=== PATIENT | male | born 1975 ===

== ENCOUNTER → 2020-07-11 09:03 | Outpatient (BNVA) | payer MEDICAID, SELFPAY | PROVIDERS: Visit Provider Internal Medicine | DX: F11.99 Opioid use, unspecified with unspecified opioid-induced disorder (principal) | CPT/HCPCS: 99202 ==

== ENCOUNTER → 2020-07-17 15:33 | Outpatient (BNVA) | payer MEDICAID, SELFPAY | PROVIDERS: PCP Internal Medicine; Visit Provider Internal Medicine ==

== ENCOUNTER → 2020-07-25 15:43 | Outpatient (BNVA) | payer MEDICAID, SELFPAY | PROVIDERS: Visit Provider Internal Medicine | DX: F11.99 Opioid use, unspecified with unspecified opioid-induced disorder (principal) | CPT/HCPCS: 80305; 99212 ==

== ENCOUNTER → 2020-08-01 15:42 | Outpatient (BNVA) | payer MEDICAID, SELFPAY | PROVIDERS: Visit Provider Internal Medicine ==

== ENCOUNTER → 2020-08-08 15:58 | Outpatient (BNVA) | payer MEDICAID, SELFPAY | PROVIDERS: Visit Provider Internal Medicine | DX: Z51.81 Encounter for therapeutic drug level monitoring (principal) | CPT/HCPCS: 80305; 99211 ==

== ENCOUNTER → 2020-08-22 15:25 | Outpatient (BNVA) | payer MEDICAID, SELFPAY | PROVIDERS: Visit Provider Internal Medicine ==

== ENCOUNTER → 2020-09-03 14:47 | Outpatient (BNVA) | payer MEDICAID, SELFPAY | PROVIDERS: Visit Provider Internal Medicine | DX: F11.99 Opioid use, unspecified with unspecified opioid-induced disorder (principal) | CPT/HCPCS: 99212 ==

== ENCOUNTER → 2020-11-07 11:38 | Outpatient (BNVA) | payer MEDICAID, SELFPAY | PROVIDERS: Visit Provider Internal Medicine | DX: F11.99 Opioid use, unspecified with unspecified opioid-induced disorder (principal) | CPT/HCPCS: 80305; 99212 ==

== ENCOUNTER → 2020-12-05 09:55 | Outpatient (BNVA) | payer MEDICAID, SELFPAY | PROVIDERS: Visit Provider Internal Medicine | DX: F11.90 Opioid use, unspecified, uncomplicated (principal) | CPT/HCPCS: 80305; 99212 ==

== ENCOUNTER → 2021-01-23 10:55 | Outpatient (BNVA) | payer MEDICAID, SELFPAY | PROVIDERS: Visit Provider Internal Medicine | DX: F11.90 Opioid use, unspecified, uncomplicated (principal) | CPT/HCPCS: 80305; 99212 ==

== ENCOUNTER → 2021-02-20 15:36 | Outpatient (BNVA) | payer MEDICAID, SELFPAY | PROVIDERS: Visit Provider Internal Medicine | DX: Z51.81 Encounter for therapeutic drug level monitoring (principal); F11.90 Opioid use, unspecified, uncomplicated | CPT/HCPCS: 80305; 99212 ==

== ENCOUNTER → 2021-03-23 17:08 | Outpatient (BNVA) | payer MEDICAID, SELFPAY | PROVIDERS: Visit Provider Internal Medicine | DX: Z51.81 Encounter for therapeutic drug level monitoring (principal); F11.90 Opioid use, unspecified, uncomplicated | CPT/HCPCS: 80305; 99212 ==

== ENCOUNTER → 2021-05-08 15:51 | Outpatient (BNVA) | payer MEDICAID, SELFPAY | PROVIDERS: Visit Provider Internal Medicine | DX: F11.20 Opioid dependence, uncomplicated (principal); Z51.81 Encounter for therapeutic drug level monitoring; Z79.899 Other long term (current) drug therapy | CPT/HCPCS: 80305; 99212 ==

== ENCOUNTER → 2021-05-25 17:11 | Outpatient (BNVA) | payer MEDICAID, SELFPAY | PROVIDERS: Visit Provider Internal Medicine | DX: Z51.81 Encounter for therapeutic drug level monitoring (principal); F11.20 Opioid dependence, uncomplicated | CPT/HCPCS: 80305; 99212 ==

== ENCOUNTER → 2021-07-22 15:46 | Outpatient (BNVA) | payer MEDICAID, SELFPAY | PROVIDERS: Visit Provider Internal Medicine | DX: F11.20 Opioid dependence, uncomplicated (principal) | CPT/HCPCS: 80305; 99212 ==

== ENCOUNTER → 2021-08-26 15:58 | Outpatient (BNVA) | payer MEDICAID, SELFPAY | PROVIDERS: Visit Provider Internal Medicine | DX: F11.99 Opioid use, unspecified with unspecified opioid-induced disorder (principal) | CPT/HCPCS: 99212 ==

== ENCOUNTER → 2021-09-25 15:51 | Outpatient (BNVA) | payer MEDICAID, SELFPAY | PROVIDERS: Visit Provider Internal Medicine | DX: Z51.81 Encounter for therapeutic drug level monitoring (principal); F11.20 Opioid dependence, uncomplicated | CPT/HCPCS: 80305; 99212 ==

== ENCOUNTER → 2021-10-07 15:55 | Outpatient (BNVA) | payer MEDICAID, SELFPAY | PROVIDERS: Visit Provider Internal Medicine | DX: Z51.81 Encounter for therapeutic drug level monitoring (principal); F11.20 Opioid dependence, uncomplicated | CPT/HCPCS: 80305; 99212 ==

== ENCOUNTER → 2021-11-04 14:04 | Outpatient (BNVA) | payer MEDICAID, SELFPAY | PROVIDERS: Visit Provider Internal Medicine | DX: Z51.81 Encounter for therapeutic drug level monitoring (principal); F11.20 Opioid dependence, uncomplicated | CPT/HCPCS: 80305; 99212 ==

== ENCOUNTER → 2021-12-09 10:36 | Outpatient (BNVA) | payer MEDICAID, SELFPAY | PROVIDERS: Visit Provider Internal Medicine | DX: Z51.81 Encounter for therapeutic drug level monitoring (principal); F11.20 Opioid dependence, uncomplicated | CPT/HCPCS: 80305; 99212 ==

== ENCOUNTER 2021-12-30 09:04 | Outpatient (REF) | payer MEDICAID, SELFPAY ==
--- NOTE | ~2021-12-30 | XR_ITS ---
EXAMINATION: XR HIP, RIGHT CLINICAL INFORMATION: Pain COMPARISON: None TECHNIQUE: Two views of the right hip. FINDINGS: Bone alignment is normal. No fracture or dislocation is seen. There is moderate to severe right hip arthritis with joint space narrowing, osteophyte formation and subchondral cyst formation. Soft tissues are unremarkable. XR/XR hip RT min 2V IMPRESSION: Moderate to severe right hip arthritis.
[2021-12-30 09:25] LABS: MANUAL DIFF FLAG NO
[2021-12-30 09:39] LABS: Basophils Percent Auto 0.6 % (0-2); Eosinophils Absolute Auto 0.2 X10*3/uL (0.0-0.4); Eosinophils Percent Auto 2.1 % (0-4); Hematocrit 45.7 % (42.0-52.0); Hemoglobin 15.1 g/dl (14.0-18.0); Imm Gran Abs Auto 0.04 X10*3/uL (0.00-0.03); Imm Gran Pct Auto 0.6 % (0.0-0.4); Lymphocytes Absolute Auto 1.8 X10*3/uL (1.2-4.9); Lymphocytes Percent Auto 25.4 % (20-40); Mean Corpuscular Volume 93.8 fL (80.0-98.0); Mean Platelet Volume 10.1 fL (9.4-12.4); Monocytes Absolute Auto 0.6 X10*3/uL (0.1-1.2); Neutrophils Absolute Auto 4.5 x10*3/uL (2.0-8.3); Neutrophils Percent Auto 63.3 % (45-73); Platelet Count 200 X10*3/uL (160-400); Red Blood Count 4.87 X10*6/uL (4.60-5.80); Red Cell Distribution Width 12.7 % (11.0-16.0); White Blood Count 7.2 X10*3/uL (4.8-10.8)
[2021-12-30 10:19] LABS: Alanine Aminotransferase 23 U/L (0-40); Albumin Level 4.3 g/dL (3.5-5.0); Alkaline Phosphatase 73 U/L (39-117); Anion Gap 12 (12-20); Aspartate Amino Transferase 15 U/L (5-37); Bilirubin Total 0.9 mg/dL (0.0-1.0); Blood Urea Nitrogen 14 mg/dL (9-16); Calcium 9.1 mg/dL (8.4-10.2); Carbon Dioxide 30 mmol/L (22-29); Chloride 104 mmol/L (96-108); Cholesterol 246 mg/dL; Estimated Glomerular Filt Rate > 60; Glucose Random 106 mg/dL (60-115); HDL Cholesterol 43 mg/dL; LDL Cholesterol Calculated 176 mg/dl; Potassium 4.8 mmol/L (3.3-5.1); Sodium 141 mmol/L (135-145); Triglycerides 137 mg/dL
== END 2021-12-30 09:05 | disposition home or self-care (01) ==
LOC: HO.LAB 09:04
PROVIDERS: PCP Internal Medicine; Visit Provider Internal Medicine
DX: M25.551 Pain in right hip (principal); I10 Essential (primary) hypertension; E78.00 Pure hypercholesterolemia, unspecified; G47.33 Obstructive sleep apnea (adult) (pediatric)
CPT/HCPCS: 36415; 73502; 80053; 80061; 85025

== ENCOUNTER → 2022-01-06 14:51 | Outpatient (BNVA) | payer MEDICAID, SELFPAY | PROVIDERS: PCP Internal Medicine; Visit Provider Internal Medicine | DX: Z51.81 Encounter for therapeutic drug level monitoring (principal); F11.20 Opioid dependence, uncomplicated | CPT/HCPCS: 80305; 99212 ==

== ENCOUNTER 2022-01-25 07:49 | Outpatient (REF) | payer MEDICAID, SELFPAY ==
--- NOTE | ~2022-01-25 | XR_ITS ---
EXAMINATION: XR PELVIS CLINICAL INFORMATION: Pain. COMPARISON: Radiographs dated 01/01/2022. TECHNIQUE: AP view of the pelvis. FINDINGS: Bony alignment and mineralization are normal. There is marked narrowing of the right acetabular joint space, most pronounced superiorly. There is peripheral osteophyte formation and subchondral sclerosis of the articular surfaces of the right hip. There is subarticular cyst formation of the right acetabular roof. The left acetabular joint space is well-maintained. There is mild subchondral sclerosis of the left acetabular roof. The femoral heads appear smooth. No fracture or dislocation is seen. The soft tissue planes are unremarkable. XR/XR pelvis 1-2V IMPRESSION: 1. There is marked osteoarthritic change of the right hip, and very mild osteoarthritic change is seen of the left hip. 2. No acute fracture or dislocation is seen.
== END 2022-01-25 07:50 | disposition home or self-care (01) ==
LOC: HO.HOSX 07:49
PROVIDERS: Visit Provider Physician Assistant
DX: M25.551 Pain in right hip (principal); M16.11 Unilateral primary osteoarthritis, right hip; E66.9 Obesity, unspecified; Z68.42 Body mass index [BMI] 45.0-49.9, adult
CPT/HCPCS: 72170; 99202

== ENCOUNTER → 2022-02-03 15:06 | Outpatient (BNVA) | payer MEDICAID, SELFPAY | PROVIDERS: PCP Internal Medicine; Visit Provider Internal Medicine | DX: F11.20 Opioid dependence, uncomplicated (principal); F14.90 Cocaine use, unspecified, uncomplicated | CPT/HCPCS: 99212 ==

== ENCOUNTER 2022-02-17 13:40 | Outpatient (REF) | payer MEDICAID, SELFPAY ==
--- NOTE | ~2022-02-17 | FL_ITS ---
PROCEDURE: XR ARTHROGRAM HIP, RIGHT CLINICAL INFORMATION: Osteoarthritis right hip. COMPARISON: None TECHNIQUE: Following explaining fluoroscopy-guided right hip steroid injection procedure, benefits and risk, a written consent was obtained. Patient was placed supine on fluoroscopy table and anterior aspect of right hip was cleaned and draped in usual sterile manner. 1% lidocaine was inserted at puncture site. A 22-gauge spinal needle was then advanced from the skin to the lateral border of right hip joint and 2 mL of nonionic contrast was injected and single image obtained. Subsequently 80 mg/1 mL of Depo-Medrol and 5 mL 1% lidocaine was injected as a 6 mL volume and needle withdrawn. Complete hemostasis achieved at puncture site. Patient tolerate procedure extremely well. FINDINGS: On a single image obtained of right hip there is severe loss of right hip joint space with moderate periarticular lateral enthesophyte. There is contrast opacifying the joint space. Fluoroscopy-guided right hip steroid injection performed. FLUOROSCOPY TIME: 0.4 minutes. DOSE AREA PRODUCT: 4.174 uGy-m2 (microgray-meter squared). FL/FL arthrogram hip RT IMPRESSION: Successful fluoroscopy-guided right hip steroid injection performed without immediate complications.
== END 2022-02-17 13:41 | disposition home or self-care (01) ==
LOC: HO.XRAY 13:40
PROVIDERS: PCP Internal Medicine; Visit Provider Physician Assistant
DX: M16.11 Unilateral primary osteoarthritis, right hip (principal)
CPT/HCPCS: 27093; 73525

== ENCOUNTER → 2022-03-19 15:47 | Outpatient (BNVA) | payer MEDICAID, SELFPAY | PROVIDERS: PCP Internal Medicine; Visit Provider Internal Medicine | DX: F11.20 Opioid dependence, uncomplicated (principal) | CPT/HCPCS: 99212 ==

== ENCOUNTER → 2022-04-14 15:53 | Outpatient (BNVA) | payer MEDICAID, SELFPAY | PROVIDERS: PCP Internal Medicine; Visit Provider Internal Medicine | DX: F11.20 Opioid dependence, uncomplicated (principal) | CPT/HCPCS: 99212 ==

== ENCOUNTER → 2022-04-27 13:52 | Outpatient (BNVA) | payer MEDICAID, SELFPAY | PROVIDERS: PCP Internal Medicine; Visit Provider Physician Assistant | DX: M16.11 Unilateral primary osteoarthritis, right hip (principal); E66.9 Obesity, unspecified; Z68.42 Body mass index [BMI] 45.0-49.9, adult | CPT/HCPCS: 99212 ==

== ENCOUNTER → 2022-05-12 14:10 | Outpatient (BNVA) | payer MEDICAID, SELFPAY | PROVIDERS: PCP Internal Medicine; Visit Provider Internal Medicine | DX: Z51.81 Encounter for therapeutic drug level monitoring (principal); F11.20 Opioid dependence, uncomplicated | CPT/HCPCS: 99212 ==

== ENCOUNTER 2022-06-16 08:34 | Outpatient (REF) | payer MEDICAID, SELFPAY ==
[2022-06-24 08:44] LABS: Buprenorphine 8; Naloxone NEGATIVE; Norbuprenorphine 13
== END 2022-06-16 08:35 | disposition home or self-care (01) ==
LOC: HO.LAB 08:34
PROVIDERS: Nurse Practitioner Psychiatric/Mental Health; PCP Internal Medicine; Visit Provider Anesthesiology
DX: F11.20 Opioid dependence, uncomplicated (principal); M16.11 Unilateral primary osteoarthritis, right hip; E66.9 Obesity, unspecified; Z79.899 Other long term (current) drug therapy
CPT/HCPCS: 80305; 80348; 80362; 99202; 99212

== ENCOUNTER → 2022-07-14 16:10 | Outpatient (BNVA) | payer MEDICAID, SELFPAY | PROVIDERS: PCP Internal Medicine; Visit Provider Nurse Practitioner Psychiatric/Mental Health | DX: Z51.81 Encounter for therapeutic drug level monitoring (principal); F11.20 Opioid dependence, uncomplicated | CPT/HCPCS: 99212 ==

== ENCOUNTER 2022-08-11 10:41 | Outpatient (REF) | payer MEDICAID, SELFPAY ==
[2022-08-11 15:17] LABS: Alanine Aminotransferase 19 U/L (0-40); Albumin Level 4.2 g/dL (3.5-5.0); Alkaline Phosphatase 67 U/L (39-117); Anion Gap 9 (12-20); Aspartate Amino Transferase 12 U/L (5-37); Bilirubin Total 1.2 mg/dL (0.0-1.0); Blood Urea Nitrogen 15 mg/dL (9-16); Calcium 9.1 mg/dL (8.4-10.2); Carbon Dioxide 31 mmol/L (22-29); Chloride 105 mmol/L (96-108); Cholesterol 215 mg/dL; Estimated Glomerular Filt Rate > 60; Glucose Fasting 99 mg/dL (60-99); HDL Cholesterol 47 mg/dL; LDL Cholesterol Calculated 150 mg/dl; Potassium 4.4 mmol/L (3.3-5.1); Sodium 141 mmol/L (135-145); Total Protein 6.7 g/dL (6.5-8.0); Triglycerides 91 mg/dL
== END 2022-08-11 10:42 | disposition home or self-care (01) ==
LOC: HO.10HDL 10:41
PROVIDERS: Visit Provider Internal Medicine
DX: I10 Essential (primary) hypertension (principal); E78.00 Pure hypercholesterolemia, unspecified; G47.33 Obstructive sleep apnea (adult) (pediatric); F11.20 Opioid dependence, uncomplicated; Z51.81 Encounter for therapeutic drug level monitoring; Z79.899 Other long term (current) drug therapy
CPT/HCPCS: 36415; 80053; 80061; 99212

== ENCOUNTER → 2022-09-07 16:03 | Outpatient (BNVA) | payer MEDICAID, SELFPAY | PROVIDERS: PCP Internal Medicine | DX: Z79.891 Long term (current) use of opiate analgesic (principal) | CPT/HCPCS: 80305 ==

== ENCOUNTER → 2022-10-05 16:08 | Outpatient (BNVA) | payer MEDICAID, SELFPAY | PROVIDERS: PCP Internal Medicine; Visit Provider Nurse Practitioner Psychiatric/Mental Health | DX: F11.20 Opioid dependence, uncomplicated (principal) | CPT/HCPCS: 99212 ==

== ENCOUNTER → 2022-11-02 16:35 | Outpatient (BNVA) | payer MEDICAID, SELFPAY | PROVIDERS: PCP Internal Medicine; Visit Provider Nurse Practitioner Psychiatric/Mental Health | DX: F11.20 Opioid dependence, uncomplicated (principal); Z79.899 Other long term (current) drug therapy; Z51.81 Encounter for therapeutic drug level monitoring | CPT/HCPCS: 99212 ==

== ENCOUNTER → 2022-11-30 16:06 | Outpatient (BNVA) | payer MEDICAID, SELFPAY | PROVIDERS: PCP Internal Medicine; Visit Provider Nurse Practitioner Psychiatric/Mental Health | DX: Z51.81 Encounter for therapeutic drug level monitoring (principal); F11.20 Opioid dependence, uncomplicated | CPT/HCPCS: 80305; 99212 ==

== ENCOUNTER 2023-01-24 15:48 | Outpatient (AMB) | payer MEDICAID, SELFPAY ==
--- NOTE | 2023-01-24 15:51 | A.OFFVIS_ITS ---
Intake Vital Signs 01/24/23 16:00 BP 122/70 Blood Pressure Location Lt radial Position Sitting Pulse 90 Pulse Source Pulse Oximeter Pulse Oximetry (%) 97 Oxygen Delivery Method Room Air Intake Visit Reasons: mat visit Intake Note: The patient presents for a mat visit Resource Protection Specialist Required: No Allergies No Known Allergies Allergy (Verified 01/24/23 15:53) Do you need a note to return to daycare/school/sports/work: No HPI mat visit HPI Details Pt presents for OUD treatment follow up Currently being prescribed SUboxone 8mg BID Denies any side effects related to medication Possibly looking for a new job PFSH Medical History Hypercholesterolemia Hypertension Morbid obesity Opioid use disorder Social History Alcohol intake: current Patient Tobacco Use Status: Never used Tobacco Current occupational status: employed 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 Review of Systems Const Reports as per HPI and Reports no additional complaints Physical Exam Vital Signs: Last Vital Signs Pulse 90 01/24/23 16:00 BP 122/70 01/24/23 16:00 Pulse Ox 97 01/24/23 16:00 Oxygen Delivery Method Room Air 01/24/23 16:00 Const General: cooperative, no acute distress and alert Nutritional Appearance: overweight Orientation/consciousness: patient oriented x3 Limitations: no limitations Neuro General: patient oriented x3 Psych Appearance: well kempt Mental Status: mental status grossly normal Speech and movement: Normal speech and movement present Affect: normal affect Attitude: cooperative Thought process: Normal thought process present Thought content: Normal thought content present Insight: Good insight present (Psych) Judgement: Good judgement present (Psych) Assessment & Plan Assessment & Plan (1) Opioid use disorder: Code(s): F11.99 - Opioid use, unspecified with unspecified opioid-induced disorder Plan: * continue suboxone at current dose * follow up 8 weeks Coding Level of Care Code Est Pt Level 3 (03916) Diagnoses Opioid use disorder F11.99
[2023-01-24 16:00] VITALS: BP 122/70; PULSE 90; O2SAT 97
== END 2023-01-24 16:41 | disposition home or self-care (01) ==
LOC: HO.HCC 15:48
PROVIDERS: PCP Internal Medicine; Visit Provider Nurse Practitioner Psychiatric/Mental Health
DX: F11.99 Opioid use, unspecified with unspecified opioid-induced disorder (principal)
CPT/HCPCS: 99213

== ENCOUNTER → 2023-01-24 15:48 | Outpatient (BNVA) | payer MEDICAID, SELFPAY | PROVIDERS: PCP Internal Medicine; Visit Provider Nurse Practitioner Psychiatric/Mental Health | DX: F11.20 Opioid dependence, uncomplicated (principal); Z51.81 Encounter for therapeutic drug level monitoring; Z79.899 Other long term (current) drug therapy | CPT/HCPCS: 99212; 99213 ==

== ENCOUNTER 2023-03-24 10:20 | Outpatient (AMB) | payer MEDICAID, SELFPAY ==
--- NOTE | 2023-03-24 10:21 | MHC.OFFVIS ---
Intake Vital Signs 03/24/23 10:30 BP 122/84 Blood Pressure Location Lt radial Position Sitting Pulse 82 Pulse Source Pulse Oximeter Pulse Oximetry (%) 98 Oxygen Delivery Method Room Air Intake Visit Reasons: mat visit Intake Note: The patient presents for a mat visit Jewelry Appraiser Required: No Allergies No Known Allergies Allergy (Verified 03/24/23 10:21) Do you need a note to return to daycare/school/sports/work: No HPI mat visit HPI Details Pt presents for OUD treatment follow up Currently being prescribed 8mg BID Denies any side effects related to medication though he lost his insurance coverage at the begining of February so he did not crab picker his January Rx. Has been taking 1 film or less. 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 Review of Systems Const Reports as per HPI and Reports no additional complaints Physical Exam Vital Signs: Last Vital Signs Pulse 82 03/24/23 10:30 BP 122/84 03/24/23 10:30 Pulse Ox 98 03/24/23 10:30 Oxygen Delivery Method Room Air 03/24/23 10:30 Const General: cooperative, no acute distress and alert Nutritional Appearance: overweight Orientation/consciousness: patient oriented x3 Limitations: no limitations Neuro General: patient oriented x3 Psych Appearance: well kempt Mental Status: mental status grossly normal Speech and movement: Normal speech and movement present Affect: normal affect Attitude: cooperative Thought process: Normal thought process present Thought content: Normal thought content present Insight: Good insight present (Psych) Judgement: Good judgement present (Psych) Assessment & Plan Assessment & Plan (1) Opioid use disorder: Code(s): F11.99 - Opioid use, unspecified with unspecified opioid-induced disorder Plan: continue suboxone at current dose follow up 8 weeks encouraged to call office with any questions or concerns in the future Coding Level of Care Code Est Pt Level 3 (48577) Diagnoses Opioid use disorder F11.99
[2023-03-24 10:30] VITALS: BP 122/84; PULSE 82; O2SAT 98
== END 2023-03-24 11:39 | disposition home or self-care (01) ==
PROVIDERS: PCP Internal Medicine; Visit Provider Nurse Practitioner Psychiatric/Mental Health
DX: F11.99 Opioid use, unspecified with unspecified opioid-induced disorder (principal)
CPT/HCPCS: 99213

== ENCOUNTER → 2023-03-24 10:20 | Outpatient (BNVA) | payer MEDICAID, SELFPAY | PROVIDERS: PCP Internal Medicine; Visit Provider Nurse Practitioner Psychiatric/Mental Health | DX: F11.20 Opioid dependence, uncomplicated (principal) | CPT/HCPCS: 99212 ==

== ENCOUNTER 2023-05-24 16:57 | Outpatient (AMB) | payer MEDICAID, SELFPAY ==
--- NOTE | 2023-05-24 16:58 | A.OFFVIS_ITS ---
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 [facility] Medical History Hypercholesterolemia Hypertension Morbid obesity Opioid use disorder Social History Alcohol intake: current Patient Tobacco Use Status: Never used Tobacco Current occupational status: employed Current occupation: [employer] at [employer]/ rt hand Review of Systems Const Reports as per HPI Physical Exam Vital Signs: Last Vital Signs Pulse 84 05/24/23 17:06 BP 126/70 05/24/23 17:06 Pulse Ox 97 05/24/23 17:06 Oxygen Delivery Method Room Air 05/24/23 17:06 Const General: cooperative Resp Effort & Inspection: normal respiratory effort Psych Appearance: grossly normal Mental Status: mental status grossly normal Speech and movement: Normal speech and movement present Thought process: Normal thought process present Thought content: Normal thought content present Insight: Good insight present (Psych) Assessment & Plan Assessment & Plan (1) Opioid use disorder: Code(s): F11.99 - Opioid use, unspecified with unspecified opioid-induced disorder Plan: * continue suboxone at current dose * follow up 8 weeks * encouraged to call office with any questions or concerns in the future Medications: Refilled buprenorphine-naloxone 8-2 mg (Suboxone) 1 film sublingual BID 30 days 60 ea 1RF Coding Level of Care Code Est Pt Level 3 (15706) Diagnoses Opioid use disorder F11.99
[2023-05-24 17:06] VITALS: BP 126/70; PULSE 84; O2SAT 97
== END 2023-05-24 17:32 | disposition home or self-care (01) ==
PROVIDERS: PCP Internal Medicine; Visit Provider Nurse Practitioner Family
DX: F11.99 Opioid use, unspecified with unspecified opioid-induced disorder (principal)
CPT/HCPCS: 99213

== ENCOUNTER → 2023-05-24 16:57 | Outpatient (BNVA) | payer OTHER, SELFPAY | PROVIDERS: PCP Internal Medicine; Visit Provider Nurse Practitioner Family | DX: F11.20 Opioid dependence, uncomplicated (principal) | CPT/HCPCS: 99212 ==

== ENCOUNTER 2023-06-27 15:17 | Outpatient (AMB) | payer BC, SELFPAY ==
--- NOTE | 2023-06-27 15:23 | MHC.AM.SUB ---
Intake Vital Signs 06/27/23 15:27 BP 132/80 Blood Pressure Location Lt radial Position Sitting Pulse 74 Pulse Source Pulse Oximeter Pulse Oximetry (%) 98 Oxygen Delivery Method Room Air Intake Visit Reasons: mat visit Intake Note: the patient presents for a mat visit Robotics Systems Engineer Required: No Allergies No Known Allergies Allergy (Verified 06/27/23 15:28) Do you need a note to return to daycare/school/sports/work: No HPI mat visit HPI Details Patient presents for BRUNO treatment and follow up He reports having some difficulties with insurance renewal that led to a lapse He confirmed he was able to get his medications and did not run out of films at any time during the lapse. Reporting the yellow strips give him a headache Reports work and home life are going well His son is getting in a few months which he is looking forward to. Denies any recovery related concerns at this time. 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 Review of Systems Const Reports as per HPI Physical Exam Vital Signs: Last Vital Signs Pulse 74 06/27/23 15:27 BP 132/80 06/27/23 15:27 Pulse Ox 98 06/27/23 15:27 Oxygen Delivery Method Room Air 06/27/23 15:27 Const General: cooperative, comfortable and no acute distress Resp Effort & Inspection: normal respiratory effort Psych Appearance: grossly normal and well kempt Mental Status: mental status grossly normal Speech and movement: Normal speech and movement present Affect: normal affect Thought content: Normal thought content present Insight: Good insight present (Psych) Judgement: Good judgement present (Psych) Assessment & Plan Assessment & Plan (1) Opioid use disorder: Code(s): F11.99 - Opioid use, unspecified with unspecified opioid-induced disorder Plan: -Mass pat reviewed -Suboxone refilled -Follow up 8 weeks Medications: Refilled buprenorphine-naloxone 8-2 mg (Suboxone) 1 film sublingual BID 30 days 60 ea 1RF Coding Level of Care Code Est Pt Level 3 (77459) Diagnoses Opioid use disorder F11.99
[2023-06-27 15:27] VITALS: BP 132/80; PULSE 74; O2SAT 98
== END 2023-06-27 16:05 | disposition home or self-care (01) ==
PROVIDERS: PCP Internal Medicine; Visit Provider Nurse Practitioner Family
DX: F11.99 Opioid use, unspecified with unspecified opioid-induced disorder (principal)
CPT/HCPCS: 99213

== ENCOUNTER → 2023-06-27 15:17 | Outpatient (BNVA) | payer BC, SELFPAY | PROVIDERS: PCP Internal Medicine; Visit Provider Nurse Practitioner Family ==

== ENCOUNTER 2023-08-23 16:36 | Outpatient (AMB) | payer BC, SELFPAY ==
--- NOTE | 2023-08-23 16:38 | A.OFFVISCC_ITS ---
Intake Vital Signs 08/23/23 16:43 BP 140/84 H Blood Pressure Location Lt radial Position Sitting Pulse 98 Pulse Source Pulse Oximeter Pulse Oximetry (%) 98 Oxygen Delivery Method Room Air Intake Visit Reasons: mat visit Intake Note: The patient presents for a mat visit Customer Success Specialist Required: No Allergies No Known Allergies Allergy (Verified 08/23/23 16:43) Do you need a note to return to daycare/school/sports/work: No HPI mat visit HPI Details Pt presents for MAT visit He is doing well overall, no concerns related to recovery Tolerating suboxone 8mg BID, no concerns for side effects Has not seen his PCP recently, reports It's been awhile He has not had his atorvastatin or lisinopril in over a month Has colonoscopy scheduled next month [facility] Medical History Hypercholesterolemia Hypertension Morbid obesity Opioid use disorder Social History Alcohol intake: current Patient Tobacco Use Status: Never used Tobacco Current occupational status: employed 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 Review of Systems Const Reports as per HPI Physical Exam Vital Signs: Last Vital Signs Pulse 98 08/23/23 16:43 BP 140/84 H 08/23/23 16:43 Pulse Ox 98 08/23/23 16:43 Oxygen Delivery Method Room Air 08/23/23 16:43 Const General: cooperative and no acute distress Resp Effort & Inspection: normal respiratory effort Psych Appearance: grossly normal Mental Status: mental status grossly normal Speech and movement: Normal speech and movement present Affect: normal affect Assessment & Plan Assessment & Plan (1) Opioid use disorder: Code(s): F11.99 - Opioid use, unspecified with unspecified opioid-induced disorder Plan: -Mass pat reviewed -Continue suboxone at current dose -Follow up 8 weeks (2) Hypercholesterolemia: Code(s): E78.00 - Pure hypercholesterolemia, unspecified Plan: -Refilled atorvastatin -Lipid panel ordered (3) Hypertension: Code(s): I10 - Essential (primary) hypertension Qualifiers: Hypertension type: primary hypertension Qualified Code(s): I10 - Essential (primary) hypertension Plan: -Lisinopril refilled (4) Obesity: Code(s): E66.9 - Obesity, unspecified Qualifiers: Obesity type: due to excess calories Serious obesity comorbidity presence: without serious comorbidity Body mass index: BMI 40.0-44.9 Obesity classification: adult class 3 (BMI >= 40) Qualified Code(s): E66.01 - Morbid (severe) obesity due to excess calories; Z68.41 - Body mass index [BMI] 40.0- 44.9, adult Plan: -A1C ordered Orders: Orders Complete Blood Count Auto Diff Today F11.99 - Opioid use, unspecified with unspecified opioid-induced disorder Hemoglobin A1c Today E66.9 - Obesity, unspecified Hepatitis A,B,C Profile Today F11.99 - Opioid use, unspecified with unspecified opioid-induced disorder Comprehensive Met. Panel Today F11.99 - Opioid use, unspecified with unspecified opioid-induced disorder Lipid Panel Today E78.00 - Pure hypercholesterolemia, unspecified Medications: New atorvastatin 10 mg PO DAILY 30 tabs 0RF lisinopril 10 mg PO DAILY 30 tabs 0RF Refilled buprenorphine-naloxone 8-2 mg (Suboxone) 1 film sublingual BID 30 days 60 ea 1RF Coding Level of Care Code Est Pt Level 4 (32811) Diagnoses Opioid use disorder F11. Hypercholesterolemia E78.00 Primary hypertension I10 Hypertension type: primary hypertension Class 3 severe obesity due to excess calories without serious comorbidity with body mass index (BMI) of 40.0 to 44.9 in adult E66.01; Z68.41 Obesity type: due to excess calories Serious obesity comorbidity presence: without serious comorbidity Body mass index: BMI 40.0-44.9 Obesity classification: adult class 3 (BMI >= 40)
[2023-08-23 16:43] VITALS: BP 140/84; PULSE 98; O2SAT 98
== END 2023-08-23 17:07 | disposition home or self-care (01) ==
PROVIDERS: PCP Internal Medicine; Visit Provider Nurse Practitioner Family
DX: F11.99 Opioid use, unspecified with unspecified opioid-induced disorder (principal); E78.00 Pure hypercholesterolemia, unspecified; I10 Essential (primary) hypertension; E66.01 Morbid (severe) obesity due to excess calories; Z68.41 Body mass index [BMI] 40.0-44.9, adult
CPT/HCPCS: 99214

== ENCOUNTER → 2023-08-23 16:36 | Outpatient (BNVA) | payer BC, SELFPAY | PROVIDERS: PCP Internal Medicine; Visit Provider Nurse Practitioner Family ==

== ENCOUNTER 2023-10-18 16:17 | Outpatient (AMB) | payer BC, SELFPAY ==
--- NOTE | 2023-10-18 16:26 | A.OFFVISCC_ITS ---
Vital Signs 10/20/23 09:22 BP 172/90 H Blood Pressure Location Rt brachial Position Sitting Pulse 115 H Pulse Source Pulse Oximeter Pulse Oximetry (%) 96 Oxygen Delivery Method Room Air Intake Visit Reasons: mat visit Allergies No Known Allergies Allergy (Verified 08/23/23 16:43) HPI HPI mat visit: Details: Patient presents for MAT appointment Blood pressure/heart rate elevated at visit, he reports he recently drank a Monster energy drink before his appointment and ran all the way up He has been taking his lisinopril every morning per his report He has an appointment in December with Dr. 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 Review of Systems Const Reports as per HPI and Denies headache(s) Eyes Denies blurry vision and Denies diplopia ENT Denies headache(s) Neuro Denies headache(s) Physical Exam Const General: cooperative and no acute distress Resp Effort & Inspection: normal respiratory effort and able to speak in complete sentences Psych Appearance: grossly normal Mental Status: mental status grossly normal Speech and movement: Normal speech and movement present Affect: normal affect Attitude: cooperative Thought process: Normal thought process present Assessment & Plan Assessment & Plan (1) Hypertension: Code(s): I10 - Essential (primary) hypertension Category: Medical Qualifiers: Hypertension type: primary hypertension Qualified Code(s): I10 - Essential (primary) hypertension Plan: -Order sent to pharmacy for blood pressure cuff, instructed him to start monitoring his blood pressure in the morning and evening and track what the readings are in a notebook -Discussed with him symptoms of dangerously high blood pressure, and explained to him what he should present to the ED for (chest pain, unrelieved headache, vision changes) -Reviewed with him to contact PCP if he gets sustained elevated readings on his cuff -Reviewed with him target blood pressures (<130/80) (2) Opioid use disorder: Code(s): F11.99 - Opioid use, unspecified with unspecified opioid-induced disorder Category: Medical Plan: -Mass pat reviewed -Suboxone refilled -Follow up 8 weeks Medications: New blood pressure test kit-large As directed 1 ea 0RF Refilled buprenorphine-naloxone 8-2 mg (Suboxone) 1 film sublingual BID 60 ea 1RF 30 days
[2023-10-20 09:22] VITALS: BP 172/90; PULSE 115; O2SAT 96
== END 2023-10-18 16:43 | disposition home or self-care (01) ==
PROVIDERS: PCP Internal Medicine; Visit Provider Nurse Practitioner Family
DX: F11.90 Opioid use, unspecified, uncomplicated (principal); I10 Essential (primary) hypertension
CPT/HCPCS: 99214

== ENCOUNTER → 2023-10-18 16:17 | Outpatient (BNVA) | payer BC, SELFPAY | PROVIDERS: PCP Internal Medicine; Visit Provider Nurse Practitioner Family ==

== ENCOUNTER 2023-12-14 09:12 | Outpatient (REF) | payer BC, SELFPAY ==
[2023-12-14 09:23] LABS: MANUAL DIFF FLAG NO
[2023-12-14 09:58] LABS: Basophils Percent Auto 0.5 % (0-2); Eosinophils Absolute Auto 0.2 X10*3/uL (0.0-0.4); Hemoglobin 14.2 g/dl (14.0-18.0); Imm Gran Abs Auto 0.04 X10*3/uL (0.00-0.03); Imm Gran Pct Auto 0.5 % (0.0-0.4); Lymphocytes Absolute Auto 1.7 X10*3/uL (1.2-4.9); Mean Corpuscular HGB Conc 32.3 g/dl (31.0-36.0); Mean Corpuscular Hemoglobin 30.5 pg (27.0-33.0); Mean Corpuscular Volume 94.4 fL (80.0-98.0); Mean Platelet Volume 10.4 fL (9.4-12.4); Monocytes Absolute Auto 0.6 X10*3/uL (0.1-1.2); Monocytes Percent Auto 8.5 % (2-11); Neutrophils Absolute Auto 4.8 x10*3/uL (2.0-8.3); Neutrophils Percent Auto 65.5 % (45-73); Platelet Count 220 X10*3/uL (160-400); Red Blood Count 4.66 X10*6/uL (4.60-5.80); Red Cell Distribution Width 13.5 % (11.0-16.0); White Blood Count 7.3 X10*3/uL (4.8-10.8)
[2023-12-14 10:05] LABS: Estimated Average Glucose 120 mg/dL; Hemoglobin A1C 151.8944 umol/L; Hemoglobin A1c % 5.8 % (<6.0)
[2023-12-14 10:27] LABS: Alanine Aminotransferase 20 U/L (0-40); Albumin Level 4.1 g/dL (3.5-5.0); Alkaline Phosphatase 68 U/L (39-117); Anion Gap 12 (12-20); Aspartate Amino Transferase 15 U/L (5-37); Bilirubin Total 0.9 mg/dL (0.0-1.0); Blood Urea Nitrogen 16 mg/dL (9-16); Calcium 9.4 mg/dL (8.4-10.2); Carbon Dioxide 28 mmol/L (22-29); Chloride 107 mmol/L (96-108); Cholesterol 221 mg/dL (<200); Estimated Glomerular Filt Rate > 60; Glucose Random 106 mg/dL (60-115); HDL Cholesterol 44 mg/dL (>40); LDL Cholesterol Calculated 157 mg/dL (<100); Potassium 4.4 mmol/L (3.3-5.1); Sodium 143 mmol/L (135-145); Triglycerides 104 mg/dL (<150)
[2023-12-14 10:52] LABS: HBS Num1 9.96 mIU/mL (0-7.99); HBc Num1 0.12 S/CO (0.00-0.79); HBsAGNum1 0.29 S/CO (0.00-0.99); Hepatitis A Antibody IgM 0.12 Index (0-0.79); Hepatitis B Core Antibody Nonreactive (Nonreactive); Hepatitis B Surface Antigen Negative (Negative); ~HepC Num1 0.23 S/CO (0.00-0.79); ~Hepatitis A Antibody IgM Nonreactive (Nonreactive); ~Hepatitis C Antibody Nonreactive (Nonreactive)
[2023-12-14 11:49] LABS: HBS Num2 9.91 mIU/mL (0-7.99); HBS Num3 9.77 mIU/mL (0-7.99); ~Hepatitis B Surface Antibody GRAYZONE (Nonreactive)
== END 2023-12-14 09:13 | disposition home or self-care (01) ==
LOC: HO.LAB 09:12
PROVIDERS: PCP Internal Medicine; Visit Provider Nurse Practitioner Family
DX: E66.9 Obesity, unspecified (principal); F11.99 Opioid use, unspecified with unspecified opioid-induced disorder; E78.00 Pure hypercholesterolemia, unspecified
CPT/HCPCS: 36415; 80053; 80061; 83036; 85025; 86704; 86706; 86709; 86803; 87340

== ENCOUNTER 2023-12-14 15:40 | Outpatient (AMB) | payer BC, SELFPAY ==
--- NOTE | 2023-12-14 15:47 | A.OFFVISCC_ITS ---
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 Review of Systems Const Reports as per HPI and Reports no additional complaints Physical Exam Const General: cooperative and no acute distress Resp Effort & Inspection: normal respiratory effort and able to speak in complete sentences Psych Appearance: grossly normal Mental Status: mental status grossly normal Speech and movement: Normal speech and movement present Affect: normal affect Attitude: cooperative Thought process: Normal thought process present Assessment & Plan Assessment & Plan (1) Opioid use disorder: Code(s): F11.99 - Opioid use, unspecified with unspecified opioid-induced disorder Category: Medical Plan: * continue suboxone at current dose * follow up 3 months Plan * continue suboxone at current dose * follow up 3 months
== END 2023-12-14 16:21 | disposition home or self-care (01) ==
PROVIDERS: PCP Internal Medicine; Visit Provider Nurse Practitioner Psychiatric/Mental Health
DX: F11.99 Opioid use, unspecified with unspecified opioid-induced disorder (principal)
CPT/HCPCS: 99213

== ENCOUNTER 2024-03-07 16:11 | Outpatient (AMB) | payer BC, SELFPAY ==
--- NOTE | 2024-03-07 16:18 | MHC.AM.SUB ---
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 Review of Systems Const Reports as per HPI and Reports no additional complaints Physical Exam Const General: cooperative and no acute distress Resp Effort & Inspection: normal respiratory effort and able to speak in complete sentences Psych Appearance: grossly normal Mental Status: mental status grossly normal Speech and movement: Normal speech and movement present Affect: normal affect Attitude: cooperative Thought process: Normal thought process present Assessment & Plan Assessment & Plan (1) Opioid use disorder, moderate, in sustained remission: Code(s): F11.21 - Opioid dependence, in remission Category: Medical Plan: continue suboxone at current dose splitting up dose to address pain follow up 2 months Medications: Refilled buprenorphine-naloxone 8-2 mg (Suboxone) 1 film sublingual BID 60 ea 1RF 30 days
== END 2024-03-07 16:41 | disposition home or self-care (01) ==
PROVIDERS: PCP Internal Medicine; Visit Provider Nurse Practitioner Psychiatric/Mental Health
DX: F11.21 Opioid dependence, in remission (principal)
CPT/HCPCS: 99213

== ENCOUNTER → 2024-03-07 16:11 | Outpatient (BNVA) | payer BC, SELFPAY | PROVIDERS: PCP Internal Medicine; Visit Provider Nurse Practitioner Psychiatric/Mental Health ==

== ENCOUNTER 2024-06-06 16:14 | Outpatient (AMB) | payer BC, SELFPAY ==
--- OUTSIDE RECORDS SUMMARY | 2024-06-06 16:18 | XMS_ITS ---
Author Organization [facility] Address [address] [place] [address] Care Team Providers Care Commercial Front Load Driver Name Role Phone Fady Brambila MD Primary Care Provider Santos Saravia Jr Unavailable ALLERGIES No Known Allergies REASON FOR VISIT Patient presents today for a screening colonoscopy MEDICATIONS Medication SIG (Take, Route, Frequency, Duration) Notes Start Date End Date Status MiraLax (colon prep) 17 GM/SCOOP mixed with Gatorade or Crystal Light Orally begin at 5:00 p.m. the day before the procedure for 1 day 12/28/2023 Active Atorvastatin Calcium 10 MG TAKE 1 TABLET BY MOUTH EVERY DAY Oral for 90 Active Buprenorphine HCl-Naloxone HCl 8-2 MG DISSOLVE 1 FILM SUBLINGUALLY TWICE DAILY Sublingual for 30 Active Lisinopril 10 MG TAKE 1 TABLET BY PILI TH EVERY DAY Oral for 90 Active IMMUNIZATIONS Vaccine Route Administration Date Status Comme nts Influenza Unknown 12/28/2023 Refused SOCIAL HISTORY Tobacco Use: Social History Observation Description Date Details (start date - stop date) Never Smoker NA - NA Sex Assigned At : Social History Observation Description Sex Assigned At Unknown Tobacco Use/Smoking Question Answer Notes Patient is a nonsmoker Alcohol Screen Question Answer Notes Did you have a drink contain ing alcohol in the past year? Yes How often did you have a dri nk containing alcohol in the past year? Monthly or less (1 point) How many drinks did you have on a typical day when you were drinking in the past year? 5 or 6 drinks (2 points) How often did you have 6 or more drinks on one occasion in the past year? Less than monthly (1 point) Points 4 Interpretation Positive PROBLEMS Problem Type ICD Code Onset Dates Problem Status W/U Status Risk SNOMED Code Notes Problem Colon cancer screening (Z12.11) Active confirmed 785240557 Problem Encounter for other preprocedural examination (Z01.818) Active confirmed 204476996 VITAL SIGNS BMI 49.57 kg/m2 12/28/2023 Blood pressure systolic 000 mm Hg 12/28/19 24 Blood pressure diastolic 00 mm Hg 024 Height 5 ft 7 in in 12/28/2023 Temperature 97.8 degrees Fahrenheit 12/28/19 24 Weight 316 lb 8 oz lbs 12/28/2023 Encounters Encounter Location Date Provider Diagnosis [facility] [address] [place] [address] 12/28/2023 Santos Wesley Jr Colon cancer screening Z12.11 and Encounter for other preprocedural examination Z01.818 ASSESSMENTS Encounter Date Diagnosis Assessment Notes Treatment Notes Treatment Clinical Notes 12/28/2023 Colon cancer screening (ICD-10 - Z12.11) 12/28/2023 Encounter for other preprocedural examination (ICD-10 - Z01.818) PLAN OF TREATMENT Medication Medication Name Sig Start Date Stop Date Notes MiraLax (colon prep) 17 GM/SCOOP mixed with Gatorade or Crystal Light Orally begin at 5:00 p.m. the day before the procedure for 1 day 12/28/2023 Future Test Test Name Order Date COLONOSCOPY 12/28/2023 Next Appt Details Follow Up: 1 Year, Reason: Progress Notes * Examination Category Sub-Category Detail Notes General Examination GENERAL APPEARANCE: in no ac kailash distress HEAD: normocephalic EYES: sclera non-icteric NECK/THYROID: no lymphadenopathy HEART: S1, S2 normal, no mu rmurs CHEST: normal shape and exp ansion LUNGS: clear to auscultatio n bilaterally ABDOMEN: soft, nontender, non distended, bowel sounds present, no organomegaly SKIN: anicteric EXTREMITIES: no clubbing, cyanosi s, or edema PSYCH: cognitive function i ntact ORAL CAVITY: mucosa moist
--- OUTSIDE RECORDS SUMMARY | 2024-06-06 16:18 | XMS_ITS ---
Author Organization [facility] Address [address] [place] [address] Care Team Providers Care Garment Tag Stringer Name Role Phone Fady Brambila MD Primary Care Provider Unavaila Santos Pinzon Jr [phone] REASON FOR VISIT pt cancelled february 16 procedure Encounters Encounter Location Date Provider Diagnosis [facility] [address] [place] [address] 02/10/2024 Santos Wesley Jr PLAN OF TREATMENT No Information
--- OUTSIDE RECORDS SUMMARY | 2024-06-06 16:18 | XMS_ITS ---
Author Organization [facility] Address [address] [place] [address] Care Team Providers Care Tow Bar Driver Name Role Phone Fady Brambila MD Primary Care Provider Unavaila Santos Pinzon Jr REASON FOR VISIT screening Encounters Encounter Location Date Provider Diagnosis [facility] Outpatient [address] [place], [place] [phone] 02/17/2024 Santos Wesley Jr PLAN OF TREATMENT No Information
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
--- NOTE | 2024-06-06 16:31 | MHC.AM.SUB ---
Intake Visit Reasons: MAT Allergies No Known Allergies Allergy (Verified 08/23/23 16:43) HPI HPI MAT: Details: Patient presents for follow up Currently prescribed Suboxone 8mg BID No issues related to medication Still working FT, no changes Review of Systems Const Reports as per HPI and Reports no additional complaints Physical Exam Const General: cooperative and healthy appearing Limitations: physical limitations (limp) Psych Speech and movement: Clear speech present Affect: normal affect Attitude: cooperative Thought process: Normal thought process present Thought content: Normal thought content present Insight: Good insight present (Psych) Judgement: Good judgement present (Psych) Assessment & Plan Assessment & Plan (1) Opioid use disorder, moderate, in sustained remission: Code(s): F11.21 - Opioid dependence, in remission Category: Medical Plan: continue suboxone at current dose follow up 2 months Medications: Refilled buprenorphine-naloxone 8-2 mg (Suboxone) 1 film sublingual BID 60 ea 1RF 30 days PFSH Medical History (Updated 06/08/24 @ 15:03 by Daphnie Melgar CNP) Morbid obesity Opioid use disorder Hypercholesterolemia Hypertension Social History Alcohol intake: current Patient Tobacco Use Status: Never used Tobacco Current occupational status: employed 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
== END 2024-06-06 16:52 | disposition home or self-care (01) ==
PROVIDERS: PCP Internal Medicine; Visit Provider Nurse Practitioner Psychiatric/Mental Health
DX: F11.21 Opioid dependence, in remission (principal)
CPT/HCPCS: 99213

== ENCOUNTER → 2024-06-06 16:14 | Outpatient (BNVA) | payer BC, SELFPAY | PROVIDERS: PCP Internal Medicine; Visit Provider Nurse Practitioner Psychiatric/Mental Health ==

== ENCOUNTER 2024-06-11 13:16 | Outpatient (REF) | payer BC, SELFPAY ==
--- NOTE | ~2024-06-11 | CT_ITS ---
EXAMINATION: CT SINUS WITHOUT CONTRAST CLINICAL INFORMATION: Lesion in the nostril, rule out tumor COMPARISON: None available. TECHNIQUE: CT sinuses and facial bones performed without intravenous contrast administration This CT examination was performed using dose optimization techniques as appropriate, variously including the following: *Automated exposure control *Adjustment of mA and/or kV according to patient size (this includes techniques or standardized protocols for targeted exams where dose is matched to indication/reason for exam; i.e. extremities or head) *Use of iterative reconstruction technique DLP: 127 mGy-cm FINDINGS: Paranasal sinuses are well-aerated without significant mucosal thickening. Osseous structures of facial bones, paranasal sinuses and nasal bones are unremarkable. There are no soft tissue mass is identified in the nostrils. There is deviation of septum towards the left with small spur towards the right. No evidence of fartun bullosa. Osteomeatal complexes are open. Orbits unremarkable. CT/CT sinus wo IV con IMPRESSION: No abnormal findings on noncontrast CT. Electronically signed by: Katie Toscano MD 06/12/2024 05:35 PM IGGY
--- OUTSIDE RECORDS SUMMARY | 2024-06-11 13:18 | XMS_ITS ---
Author Organization [facility] Address [address] [place] [address] Care Team Providers Care Equipment Operator Wage Hand Name Role Phone Fady Brambila MD Primary Care Provider Unavaila Santos Pinzon Jr [phone] REASON FOR VISIT screening Encounters Encounter Location Date Provider Diagnosis [facility] [place] [address] [place], [place] [phone] 02/17/2024 Santos Wesley Jr PLAN OF TREATMENT No Information
--- OUTSIDE RECORDS SUMMARY | 2024-06-11 13:19 | XMS_ITS ---
Author Organization [facility] Address [address] [place] [address] Care Team Providers Care Agricultural Equipment Test Engineer Name Role Phone Fady Brambila MD Primary [...] Problem Colon cancer screening (Z12.11) Active confirmed 406776406 Problem Encounter for other preprocedural examination (Z01.818) Active confirmed 137660930 VITAL SIGNS BMI 49.57 kg/m2 12/28/2023 Blood pressure systolic 000 mm Hg 12/28/19 24 Blood pressure diastolic 00 mm Hg 024 Height 5 ft 7 in in 12/28/2023 Temperature 97.8 degrees Fahrenheit 12/28/19 24 Weight 316 lb 8 oz lbs 12/28/2023 Encounters Encounter Location Date Provider Diagnosis [facility] [address] [place] [address] 12/28/2023 Santos Wesley Jr Colon cancer screening [...]
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
--- OUTSIDE RECORDS SUMMARY | 2024-06-11 13:19 | XMS_ITS ---
Author Organization [facility] Address [address] [place] [address] Care Team Providers Care Grey Roll Man Name Role Phone Fady Brambila MD Primary Care Provider Unavaila Santos Pinzon Jr [phone] REASON FOR VISIT pt cancelled february 16 procedure Encounters Encounter Location Date Provider Diagnosis [facility] [address] [place] [address] 02/10/2024 Santos Wesley Jr PLAN OF TREATMENT No Information
== END 2024-06-11 13:17 | disposition home or self-care (01) ==
LOC: HO.CT 13:16
PROVIDERS: PCP Internal Medicine; Visit Provider Internal Medicine
DX: D23.4 Other benign neoplasm of skin of scalp and neck (principal)
CPT/HCPCS: 70486

== ENCOUNTER 2024-08-31 09:10 | Outpatient (AMB) | payer BC, SELFPAY ==
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
[2024-08-31 09:12] VITALS: BP 142/80; PULSE 84; RESP 16; TEMP 36.4; O2SAT 99; BMI 48.2
--- OUTSIDE RECORDS SUMMARY | 2024-08-31 09:52 | XMS_ITS ---
Author Organization [facility] Address [address] [place] [address] Care Team Providers Care Pipe Fitter Welding Name Role Phone Fady Brambila MD Primary Care Provider Unavaila Santos Pinzon Jr REASON FOR VISIT pt cancelled february 16 procedure Encounters Encounter Location Date Provider Diagnosis [facility] [address] [place] [address] 02/10/2024 Santos Wesley Jr Plan Of Treatment No Information Progress Notes * SAL MEYERDOB:1975 ( 48 yo M)Acc No.[id number]:02/10/2024 Patient:?SAL MEYER :1975???Age:48 Y???Sex:Male Address:[address] [facility] , [place], [address] * true * Date:? Generated for Sree salazar/Angelic/eTransmitting on:?08/31/2024 09:52 AM EDT
--- OUTSIDE RECORDS SUMMARY | 2024-08-31 09:52 | XMS_ITS ---
Author Organization [facility] Address [address] [place] [phone] Care Team Providers Care Dining Room Tables Set Up Attendant Name Role Phone Fady Brambila MD Primary Care Provider Santos Saravia Jr REASON FOR VISIT screening Encounters Encounter Location Date Provider Diagnosis [facility] Outpatient [address] [place] [phone] 02/17/2024 Santos Wesley Jr Plan Of Treatment No Information Progress Notes * SAL MEYERDOB:1975 ( 49 yo M)Acc No.[id number]:02/17/2024 COLON WITH MAC Patient:?SAL MEYER Provider:?Santos Wesley MD :1975???Age:48 Y???Sex:Male Martín e:02/17/2024 Address:[address] [place], [place] [id number] Pcp:Fady Brambila MD Subjective: * Chief Complaints: * ???1. Screening. * Medical History:? Objective: * Vitals:? Assessment: Plan: * Treatment: * * The named appointment provid er may or may not be the originator of this progress note, and it is not deemed complete until electronically signed by the appointment provider. Sign off status: Pending * Provider:?Santos Wesley MD Date:?0 02/17/2024 Generated for Sanchezi marie/Fageneg/eTransmitting on:?08/31/2024 09:51 AM EDT
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
== END 2024-08-31 09:50 | disposition home or self-care (01) ==
LOC: HO.HMCHD 09:10
PROVIDERS: PCP Internal Medicine; Visit Provider Internal Medicine
DX: M54.32 Sciatica, left side (principal); R73.03 Prediabetes; G47.33 Obstructive sleep apnea (adult) (pediatric)

== ENCOUNTER 2024-08-31 09:10 | Outpatient (REF) | payer BC, SELFPAY ==
--- NOTE | ~2024-08-31 | XR_ITS ---
CLINICAL HISTORY: M54.32 - Sciatica, left side 3 views lumbar spine Comparison: CR - LUMBAR SPINE 2TO 3 [id number] - 07/18/17 08:46 EST Findings: Slight rotation of the lumbar spine and otherwise alignment is maintained with no subluxation. Vertebral body height is maintained. Vertical lucency through the left L2 transverse process could be artifactual or may represent a fracture. No additional fractures visualized. Mild multilevel spondylosis. L4-5 and L5-S1 facet arthropathy. IMPRESSION: 1. Lucency through left L2 transverse process could be artifactual or represent a fracture. Otherwise no acute findings. This document has been electronically signed by: Shadia Shay MD on 08/31/2024 17:00:15
== END 2024-08-31 09:11 | disposition home or self-care (01) ==
LOC: HO.XRAY 09:10
PROVIDERS: PCP Internal Medicine; Visit Provider Internal Medicine
DX: M54.32 Sciatica, left side (principal)
CPT/HCPCS: 72100

== ENCOUNTER → 2024-08-31 10:11 | Outpatient (BNV) | payer BC, SELFPAY | PROVIDERS: PCP Internal Medicine; Visit Provider Specialist | DX: M54.32 Sciatica, left side (principal) | CPT/HCPCS: 72100 ==

== ENCOUNTER → 2024-09-05 16:14 | Outpatient (BNVA) | payer BC, SELFPAY | PROVIDERS: PCP Internal Medicine; Visit Provider Nurse Practitioner Psychiatric/Mental Health ==

== ENCOUNTER 2024-09-17 18:00 | Outpatient (REF) | payer BC, SELFPAY ==
--- NOTE | ~2024-09-17 | MR_ITS ---
CLINICAL HISTORY: S32.009A - Unspecified fracture of unspecified lumbar vertebra, initial ... MR lumbar spine without gadolinium Comparison: CR - XR LUMBAR SPINE 2-3V - 08/31/24 10:31 EDT Findings: Trace anterolisthesis of L4 on L5. There is no lumbar spine fracture. The L2 transverse process is intact. Cauda equina and conus medullaris within normal limits. L1-L2: Normal L2-L3: Normal L3-L4: Mild broad-based disc bulge. Mild thecal sac effacement. Very mild neural foraminal narrowing. L4-L5: Moderately severe facet osteoarthritis. Mild mass effect on the posterolateral margins of the thecal sac. Mild narrowing of the left neural foramen. L5-S1: Mild osteoarthritis of the right facet joint. No significant central canal or neural foraminal narrowing. Paraspinous musculature intact. IMPRESSION: No lumbar spine fracture. This document has been electronically signed by: Jagruti Porter MD on 09/17/2024 18:59:56
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
--- OUTSIDE RECORDS SUMMARY | 2024-09-17 18:19 | XMS_ITS ---
Author Organization [facility] Address [address] [place] [address] Care Team Providers Care Hand Engraver Name Role Phone Fady Brambila MD Primary Care Provider Santos Saravia Jr REASON FOR VISIT screening Encounters Encounter Location Date Provider Diagnosis [facility] [address] [place] [phone] 02/17/2024 Santos Wesley Jr Plan Of Treatment No Information Progress Notes * SAL MEYERDOB:1975 ( 49 yo M)Acc No.[id number]:02/17/2024 COLON WITH MAC Patient:?SAL MEYER Provider:?Santos Wesely MD :1975???Age:48 Y???Sex:Male Martín e:02/17/2024 Address:[address] [place], [place] [phone] Pcp:Fady Brambila MD Subjective: * Chief Complaints: [...] Wesley MD Date:?0 02/17/2024 Generated for Sanchezi ng/Fageneg/eTransmitting on:?09/17/2024 06:19 PM EDT
--- OUTSIDE RECORDS SUMMARY | 2024-09-17 18:20 | XMS_ITS ---
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 Master Electrician Name Role Phone Fady Brambila MD Primary Care Provider Santos Saravia Jr Unavailable Allergies No Known Allergies REASON FOR VISIT [...] Problem Status W/U Status Risk Notes Problem [id number] Colon cancer screening (Z12.11) Active confirmed Problem 803098908 Encounter for other preprocedural examination (Z01.818) Active confirmed Vital Signs Temperature 97.8 degrees Fahrenheit 12/28/19 24 Blood pressure systolic 000 mm Hg 12/28/19 24 Blood pressure diastolic 00 mm Hg 024 Height 5 ft 7 in in 12/28/2023 Weight 316 lb 8 oz lbs 12/28/2023 BMI 49.57 kg/m2 12/28/2023 Encounters Encounter Location Date Provider Diagnosis [facility] [address] [place] [address] 12/28/2023 Santos Wesley Jr Colon cancer screening [...] * SAL HONGDOB:1975 ( 48 yo M)Acc No.[id number]:12/28/2023 Progress Notes Patient:?SAL HONG Provider:?Santos Wesley MD :1975???Age:48 Y???Sex:Male Martín e:12/28/2023 Address:[address] [place] [address] Pcp:Fady Brambila MD Subjective: * Chief Complaints: [...] MD Date:?0 12/28/2023 Generated for Printi ng/Fageneg/eTransmitting on:?09/17/2024 06:19 PM EDT History and Physical Notes * HPI [...]
== END 2024-09-17 18:01 | disposition home or self-care (01) ==
LOC: HO.MRI 18:00
PROVIDERS: Visit Provider Internal Medicine
DX: S32.009A Unspecified fracture of unspecified lumbar vertebra, initial encounter for closed fracture (principal); M54.32 Sciatica, left side
CPT/HCPCS: 72148

== ENCOUNTER → 2024-09-17 18:08 | Outpatient (BNV) | payer BC, SELFPAY | PROVIDERS: Visit Provider Radiology Diagnostic Radiology | DX: S32.009A Unspecified fracture of unspecified lumbar vertebra, initial encounter for closed fracture (principal) | CPT/HCPCS: 72148 ==

== ENCOUNTER 2024-10-18 14:14 | Outpatient (AMB) | payer BC, SELFPAY ==
--- NOTE | 2024-10-18 14:14 | A.OFFVIS_ITS ---
Vital Signs 10/18/24 14:19 Height 5 ft 7 in Weight 306 lb BMI 47.9 BP 178/113 H Blood Pressure Location Rt brachial Position Sitting Pulse 88 Pulse Source Pulse Oximeter Pulse Oximetry (%) 98 Oxygen Delivery Method Room Air Intake Visit Reasons: Sciatica, left side/last seen 2021/johnnie from 09/24 Intake Note: Pain today 5/10 Privacy Manager Required: No Accompanied by: Self / Same As Patient Allergies No Known Allergies Allergy (Verified 10/18/24 14:20) HPI Comments Details: Ludwig is back in my office with complains on pain in the right hip. In the past he received hip steroid injections he reported only few weeks of pain control. It was done under x-ray guidance many years ago. I offered him to perform the repeated injection in his right hip. He agreed to go for the injection. We were planning in the past to perform a trial of MAD Incubator spinal cord stimulator with position of the electrode in lumbar gutter L2-L3 L3- L4 epidural interspace. Patient is interested in this procedure. He needs to go to psychological evaluation. Brochure of [employer] was given to the patient. 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 Prior: very pleasant 47 years old gentleman who is suffering from osteoarthritis and opioid use disorder. He came to my office with complains on pain in the groin as well as pain in the hip and pain in the trochanteric area. He reports that he is suffering from this condition for 15 years he reports his pain 6/10. He reports that he cannot sleep normally but he can do activities of daily living take care of himself and function normally. 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 He is self mobile. He reports that his pain is most severe in the morning. In terms of tissue damage he reports his pain is pulsing pounding shooting pinching cramping crushing tugging pulling ranging dull hurting heavy sensation. He never had physical therapy for his pain. The hip x-ray was done on 01/25/2022 and dictated as below. He was offered total hip replacement if he would be able to lose some weight. For years to come he had multiple injections into the right hip those were steroid injections ultrasound-guided. Originally the were very instrumental to help his pain. However recently he found that a injections last only 1-2 days for him. Currently he is on Suboxone for UD. [facility] Medical History Morbid obesity Opioid use disorder Hypercholesterolemia Hypertension Family History Mother Liver failure Social History Housing: Apartment Alcohol intake: current Alcohol intake frequency: a few times a week Patient Tobacco Use Status: Former Tobacco user service: No Current occupational status: employed Current occupation: [employer] Cognitive needs: No Hearing needs: No Vision needs: No Review of Systems Const All systems reviewed & are unremarkable except as noted in HPI and below ENT Reports Normal hearing present Neuro Reports Normal hearing present, Denies Abnormal speech present, Denies confusion and Denies Sensory deficit (Neuro) Psych Denies confusion Physical Exam Vital Signs: Last Vital Signs Pulse 88 10/18/24 14:19 BP 178/113 H 10/18/24 14:19 Pulse Ox 98 10/18/24 14:19 Oxygen Delivery Method Room Air 10/18/24 14:19 BMI result Body Mass Index 47.9 Const General: No confusion Nutritional Appearance: obese morbidly obese Orientation/consciousness: No confusion Eyes General: appearance normal, both eyes and all related structures Pupils: Equal, round and reactive pupils present EOM: EOMs intact bilaterally Neck Neck: Yes full ROM Chest Chest palpation & inspection: normal inspection of the chest Resp Effort & Inspection: normal respiratory effort, able to speak in complete sentences, normal respiratory pattern, no audible wheezes and no cough Cardio Jugular venous distension: no JVD GI Inspection: Yes normal to inspection Neuro General: No confusion Cranial nerves: Yes Equal, round and reactive pupils present and Yes Normal hearing present Speech: No Abnormal speech present Gait exam (Neuro): Normal gait present Motor exam (neuro): 5/5 motor strength present throughout Sensory Exam: No Sensory deficit (Neuro) Extrem Other: Lateral and medial rotation of the hip causes discomfort in the groin as well as discomfort in the trochanteric area. Range of motion of the right hip is limited compared to the left. General: No pedal edema Psych Speech and movement: Normal speech and movement present Affect: normal affect Attitude: cooperative Thought process: Normal thought process present Thought content: Normal thought content present Insight: Good insight present (Psych) Judgement: Good judgement present (Psych) Assessment & Plan Assessment & Plan (1) Osteoarthritis of right hip: Code(s): M16.11 - Unilateral primary osteoarthritis, right hip Category: Medical (2) Obesity: Code(s): E66.9 - Obesity, unspecified Category: Medical Qualifiers: Body mass index: BMI 40.0-44.9 Obesity classification: adult class 3 (BMI >= 40) Obesity type: due to excess calories Serious obesity comorbidity presence: without serious comorbidity Qualified Code(s): E66.01 - Morbid (severe) obesity due to excess calories; Z68.41 - Body mass index [BMI] 40.0-44.9, adult (3) Right hip pain: Code(s): M25.551 - Pain in right hip Category: Medical Plan Mr. Hong is a 46-year-old right hand dominant male presents in the office today for discussion of the pain management. He came to my office again after 3 years of absence. He is interested in MAD Incubator spinal cord stimulators discuss previously. He is interested in right hip steroid injection. 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 Patient?s current, as of 04/27/2022, weight is 298 pounds and his BMI is 46.6. He was completing physical therapy last time on my referral and it did not help his pain. He continues to do home exercise program. He is working individual and he is very active. He is morbidly obese. Coding Level of Care Code New Pt Level 3 (99883) Diagnoses Osteoarthritis of right hip M16.11 Class 3 severe obesity due to excess calories without serious comorbidity with body mass index (BMI) of 40.0 to 44.9 in adult E66.01; Z68.41 Body mass index: BMI 40.0-44.9 Obesity classification: adult class 3 (BMI >= 40) Obesity type: due to excess calories Serious obesity comorbidity presence: without serious comorbidity Right hip pain M25.551
[2024-10-18 14:19] VITALS: BP 178/113; PULSE 88; O2SAT 98; BMI 47.9
== END 2024-10-18 14:41 | disposition home or self-care (01) ==
PROVIDERS: PCP Internal Medicine; Visit Provider Anesthesiology
DX: M16.11 Unilateral primary osteoarthritis, right hip (principal); E66.01 Morbid (severe) obesity due to excess calories; Z68.41 Body mass index [BMI] 40.0-44.9, adult; M25.551 Pain in right hip
CPT/HCPCS: 99213

== ENCOUNTER 2024-11-14 16:13 | Outpatient (AMB) | payer BC, SELFPAY ==
--- OUTSIDE RECORDS SUMMARY | 2024-11-14 16:17 | XMS_ITS ---
Author Organization [facility] Address [address] [place] [address] Care Team Providers Care Valet Cashier Name Role Phone Fady Brambila MD Primary Care Provider Santos Saravia Jr [phone] REASON FOR VISIT screening Encounters Encounter Location Date Provider Diagnosis [facility] [place] [address] [place] [phone] 02/17/2024 Santos Wesley Jr Plan Of Treatment No Information Progress Notes * SAL MEYERDOB:1975 ( 49 yo M)Acc No.[id number]:02/17/2024 COLON WITH MAC Patient:?SAL MEYER Provider:?Santos Wesley MD :1975???Age:48 Y???Sex:Male Martín e:02/17/2024 Address:[address] [place], [place] [phone] Pcp:Fady Brambila MD Subjective: * Chief Complaints: [...] MD Date:?0 02/17/2024 Generated for Sanchezi ng/Fageneg/eTransmitting on:?11/14/2024 04:17 PM EDT
[2024-11-14 16:27] VITALS: PULSE 99; O2SAT 97
--- NOTE | 2024-11-14 16:27 | MHC.OFFVIS ---
Vital Signs 11/14/24 16:27 Pulse 99 Pulse Source Pulse Oximeter Pulse Oximetry (%) 97 Oxygen Delivery Method Room Air Intake Visit Reasons: mat visit Allergies No Known Allergies Allergy (Verified 11/14/24 16:28) HPI HPI mat visit: Details: He is doing well on current dosing PFSH Medical History Morbid obesity Opioid use disorder Hypercholesterolemia Hypertension Family History Mother Liver failure Social History Housing: Apartment Alcohol intake: current Alcohol intake frequency: a few times a week Patient Tobacco Use Status: Former Tobacco user service: No Current occupational status: employed 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 Medications: New buprenorphine-naloxone 8-2 mg (Suboxone) 1 film sublingual BID 60 ea 1RF 30 days Coding Level of Care Code Est Pt Level 3 (32543) Diagnoses Opioid use disorder, moderate, in sustained remission F11.21
== END 2024-11-14 16:59 | disposition home or self-care (01) ==
LOC: HO.HCC 16:13
PROVIDERS: PCP Internal Medicine; Visit Provider Internal Medicine
DX: F11.21 Opioid dependence, in remission (principal)
CPT/HCPCS: 99213

== ENCOUNTER → 2024-11-14 16:13 | Outpatient (BNVA) | payer BC, SELFPAY | PROVIDERS: PCP Internal Medicine; Visit Provider Internal Medicine ==

== ENCOUNTER 2024-11-27 06:12 | Outpatient (REF) | payer BC, SELFPAY ==
--- NOTE | ~2024-11-27 | FL_ITS ---
EXAMINATION: FLUOROSCOPY GUIDANCE FOR NEEDLE PLACEMENT CLINICAL INFORMATION: M25.551 - Pain in right hip FINDINGS/ FL/FL guidance in treatment room IMPRESSION: A single digital image was obtained. Fluoroscopy was provided to referring physician for right hip steroid injection. No radiologist was present. Electronically signed by: Ananda Soto MD 11/27/2024 03:19 PM EDT
--- OUTSIDE RECORDS SUMMARY | 2024-11-27 06:15 | XMS_ITS ---
Author Organization [facility] Address [address] [place] [address] Care Team Providers Care Hydraulic Jack Mechanic Name Role Phone Fady Brambila MD Primary Care Provider Santos Saravia Jr [phone] REASON FOR VISIT screening Encounters Encounter Location Date Provider Diagnosis [facility] [place] [address] [place] [id number] 02/17/2024 Santos Wesley Jr Plan Of Treatment No Information Progress Notes * SAL MEYERDOB:1975 ( 49 yo M)Acc No.[id number]:02/17/2024 COLON WITH MAC Patient:?SAL MEYER Provider:?Santos Wesley MD :1975???Age:48 Y???Sex:Male Martín e:02/17/2024 Address:[address] [place], [place] [id number] Pcp:Fady Brambila MD Subjective: * Chief Complaints: [...] MD Date:?0 02/17/2024 Generated for Sanchezi ng/Fageneg/eTransmitting on:?11/27/2024 06:15 AM EDT
== END 2024-11-27 06:13 | disposition home or self-care (01) ==
LOC: CF 06:12
PROVIDERS: Visit Provider Anesthesiology
DX: M25.551 Pain in right hip (principal)
CPT/HCPCS: 20610; J2003; J2795; J3301; Q9967

== ENCOUNTER 2024-11-27 13:47 | Outpatient (AMB) | payer BC, SELFPAY ==
--- NOTE | 2024-11-27 14:00 | A.OFFVIS_ITS ---
Vital Signs 11/27/24 14:01 11/27/24 14:26 Weight 304 lb BP 164/84 H 157/97 H Blood Pressure Location Lt brachial Lt brachial Position Sitting Sitting Respiration 20 18 Pulse 89 86 Pulse Source Pulse Oximeter Pulse Oximeter Pulse Oximetry (%) 97 98 Oxygen Delivery Method Room Air Room Air Intake Visit Reasons: RIGHT HIP INJECTION [employer] Chair Required: No Allergies No Known Allergies Allergy (Verified 11/27/24 14:01) [facility] Medical History Morbid obesity Opioid use disorder Hypercholesterolemia Hypertension Family History Mother Liver failure Social History Housing: Apartment Alcohol intake: current Alcohol intake frequency: a few times a week Patient Tobacco Use Status: Former Tobacco user service: No Current occupational status: employed Current occupation: [employer] Cognitive needs: No Hearing needs: No Vision needs: No Physical Exam Vital Signs: Last Vital Signs Pulse 86 11/27/24 14:26 Resp 18 11/27/24 14:26 BP 157/97 H 11/27/24 14:26 Pulse Ox 98 11/27/24 14:26 Oxygen Delivery Method Room Air 11/27/24 14:26 Assessment & Plan Assessment & Plan (1) Right hip pain: Code(s): M25.551 - Pain in right hip Category: Medical Plan Right intra-articular hip steroid injection. Patient came to the operating room after informed consent was thoroughly explained to the patient. she was positioned on the left lateral decubitus position on the operating table with the right hip area exposed. Time-out was performed delineating name and date of of the patient, nature of the procedure side and site of the procedure. The patient is nondependent right hip was prepped with ChloraPrep and draped with sterile utility towels. C-arm was brought over the operating field and picture of the right hip joint was demonstrated on the screen. In the projection of the right trochanter 5 mm above the most superior point of right trochanter projection to the skin injection of the local anesthetic mixture of lidocaine 2% and ropivacaine 0.5% one-to-one was performed forming a skin wheal. After that 22 gauge 7 in needle was inserted through the skin wheal and advanced toward the joint under the anterior posterior and lateral views intermittently. When the tip of the needle entered the silhouette of the joint injection of the contrast was performed demonstrating arthrogram. After that 4 cc of ropivacaine 0.5% mixed with Kenalog 40 mg was performed into the joint. The needle was removed sterile Band-Aid was applied. Patient tolerated procedure well. Orders: Orders FL guidance in treatment room Today M25.551 - Pain in right hip Coding Level of Care Code Procedure Only Diagnoses Right hip pain M25.551
[2024-11-27 14:01] VITALS: BP 164/84; PULSE 89; RESP 20; O2SAT 97
[2024-11-27 14:26] VITALS: BP 157/97; PULSE 86; RESP 18; O2SAT 98
== END 2024-11-27 14:30 | disposition home or self-care (01) ==
LOC: HO.PMCPRC 13:47
PROVIDERS: PCP Internal Medicine; Visit Provider Anesthesiology
DX: M25.551 Pain in right hip (principal)
CPT/HCPCS: 20610; 77002

== ENCOUNTER 2024-12-14 14:58 | Outpatient (AMB) | payer BC, SELFPAY ==
--- OUTSIDE RECORDS SUMMARY | 2024-02-17 07:40 | XMS_ITS ---
Author Organization [facility] Address [address] [place] [phone] Care Team Providers Care Natural Resource Officer Name Role Phone Fady Brambila MD Primary Care Provider Santos Saravia Jr REASON FOR VISIT screening Encounters Encounter Location Date Provider Diagnosis [facility] Out[facility] [address] [place] [phone] 02/17/2024 Santos Wesley Jr Plan Of Treatment No Information Progress Notes * SAL MEYERDOB:1975 ( 49 yo M)Acc No.[id number]:02/17/2024 COLON WITH MAC Patient: SAL PARK Provider: Francisco Javier eWsley MD :1975 A ge:48 Y S ex:Male Date:02/17/2024 Address:[address] [place], [place] [phone] Pcp:Fady Brambila MD Subjective: * Chief Complaints: * 1 . Screening. * Medical History: Objective: * Vitals: Assessment: Plan: * Treatment: * * The named appointment provid er may or may not be the originator of this progress note, and it is not deemed complete until electronically signed by the appointment provider. Sign off status: Pending * Provider: Francisco Javier Wesley MD Date: 0 02/17/2024 Generated for Sree salazar/Angelic/eTransmitting on: 0 12/14/2024 03:10 PM EDT
[2024-12-14 15:08] VITALS: BP 140/80; PULSE 84; TEMP 36.2; O2SAT 98; BMI 47.9
--- NOTE | 2024-12-14 15:08 | A.OFFPC_ITS ---
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: No Accompanied by: Self / Same As Patient Allergies No Known Allergies Allergy (Verified 12/14/24 15:08) Tobacco use date assessed: 12/14/24 Dental Screening Dental Screen Date: 12/14/24 Did you have a dental visit in the last 12 months?: No Did you have a dental problem in the last 6 months where you did not have access to dental care?: No HPI HPI Comments History of Present Illness Details The patient is a 49 year old female with a past medical history of hypertension, hyperlipidemia, obesity, MIRNA, prediabetes, opiate use disorder on suboxone presenting for follow up CV: 142/80, 140/80 today. On lisinopril 10mg daily but he has been out of the medication. Denies chest pain, shortness of breath MSK: Left low back pain/sciatica flare x 3 weeks. Was seen in urgent care. Tried meloxicam, muscle relaxer, solumedrol. Was feeling a little better then had to push his car and re hurt. Patient was referred to pain management. He received a lumbar injection with great improvement in pain levels History of prediabetes, sleep apnea. Wegovy, zepbound not covered. Patient has tried decreasing caloric intake and has been increasing walks for the last few months Patient has a remote history of cocaine use. He continues to have nasal bleeding and clot formation Colon cancer screening ROS see HPI PHYSICAL EXAM: GENERAL: Alert and oriented x 3. NAD EYES: EOMI. Anicteric. HENT: Moist mucous membranes. No scleral icterus. No cervical lymphadenopathy. LUNGS: Clear to auscultation bilaterally. CARDIOVASCULAR: Regular rate and rhythm. No murmur. No JVD. ABDOMEN: Soft, non-tender +bs EXTREMITIES: No edema. Non-tender. SKIN: No rashes or lesions. Warm. NEUROLOGIC: No focal neurological deficits. CN II-XII grossly intact PSYCHIATRIC: Cooperative. Appropriate mood and affect [facility] Medical History Morbid obesity Opioid use disorder Hypercholesterolemia Hypertension Family History Mother Liver failure Mother No problems noted. Father No problems noted. Social History Housing: Apartment Alcohol intake: current Alcohol intake frequency: a few times a week Patient Tobacco Use Status: Former Tobacco user service: No Current occupational status: employed Current occupation: [employer] Cognitive needs: No Hearing needs: No Vision needs: No Questionnaire PHQ-9 Over the last 2 weeks, how often have you been bothered by any of the following problems? 1. Little interest or pleasure in doing things: not at all 2. Feeling down, depressed, or hopeless: several days 3. Trouble falling or staying asleep, or sleeping too much: not at all 4. Feeling tired or having little energy: not at all 5. Poor appetite or overeating: not at all 6. Feeling bad about yourself - or that you are a failure or have let yourself or your family down: not at all 7. Trouble concentrating on things, such as reading the newspaper or watching television: not at all 8. Moving or speaking so slowly that other people could have noticed. Or the opposite - being so fidgety or restless that you have been moving around a lot more than usual: not at all 9. Thoughts that you would be better off or of hurting yourself in some way: not at all Total score: 1 Depression Screening Interpretation: Negative Depression Screening Done: Yes 01138 - PHQ-9 Billing: Yes Source: Developed by Drs. Alexis Wiseman, Lesley Quiñones, Abdiel Hahn and colleagues, with an educational jaci from [employer]. Thrive Questionnaire Date Thrive assessed: 12/14/24 I am a: Patient Within the past 12 months, did the food you bought not last and you didn't have the money to get more?: Never true Within the past 12 months, did you worry whether your food would run out before you got money to buy more?: Never true Do you have trouble paying for medicines?: No Do you have trouble getting transportation to medical appointments?: No Do you have trouble paying your heating and electricity bill?: No Do you have trouble taking care of your child, family member or friend?: No Do you have trouble with day-to-day activities such as bathing, preparing meals, shopping, managing finances, etc.?: No Are you currently unemployed and looking for a job?: No Are you interested in more education?: No THRIVE Score: 0 AUDIT C Alcohol Use Questionnaire (AUDIT-C) 1. How often do you have a drink containing alcohol?: Monthly or less 2. How many drinks containing alcohol do you have on a typical day when you are drinking?: 1 or 2 3. How often do you have six or more drinks on one occasion?: Less than monthly Total Score: 2 MIKY-7 AMB Questionnaire MIKY-7 Date MIKY - 7 assessed: 12/14/24 Feeling nervous, anxious, or on edge: 1 = Several days Not being able to stop or control worryin = Not at all Worrying too much about different things: 0 = Not at all Trouble relaxin = Not at all Being so restless that it is hard to sit still: 0 = Not at all Becoming easily annoyed or irritable: 0 = Not at all Feeling afraid as if something awful might happen: 0 = Not at all Total MIKY-7 score (0-4 normal; 5-9 mild; 10-14 moderate; 15-21 severe): 1 Source: Developed by Drs. Alexis Wiseman, Lesley Quiñones, Abdiel Hahn and colleagues, with an educational jaci from [employer]. Physical exam (Primary Care) Vital Signs: Last Vital Signs Temp 97.1 F 12/14/24 15:08 Pulse 84 12/14/24 15:08 BP 140/80 H 12/14/24 15:08 Pulse Ox 98 12/14/24 15:08 Oxygen Delivery Method Room Air 12/14/24 15:08 BMI result Body Mass Index 47.9 Tobacco/Smoking Status: Tobacco use Status Tobacco use date assessed 12/14/24 12/14/24 15:16 Patient Tobacco Use Status Former Tobacco user 12/14/24 15:16 Depression Screening Interpretation: Negative Thrive Assessment: Date of Thrive Assessment Date Thrive assessed 12/14/24 12/14/24 15:16 Coding Level of Care Code Est Pt Level 4 (59658) Diagnoses Primary hypertension I10 Hypertension type: primary hypertension Hypercholesterolemia E78.00 Prediabetes R73.03 Additional Codes PHQ-9 - 32398 - PHQ-9 Billing: Yes ([id number]) Assessment & Plan Assessment & Plan (1) Hypertension: Code(s): I10 - Essential (primary) hypertension Category: Medical Qualifiers: Hypertension type: primary hypertension Qualified Code(s): I10 - Essential (primary) hypertension (2) Hypercholesterolemia: Code(s): E78.00 - Pure hypercholesterolemia, unspecified Category: Medical (3) Prediabetes: Code(s): R73.03 - Prediabetes Category: Medical Plan recurrent nose bleeds-referral to ENT Back pain with interval improvement in severity following injection Orders: Referrals Cologuard Test Z12.11 - Encounter for screening for malignant neoplasm of colon, Z12.12 - Encounter for screening for malignant neoplasm of rectum Ear/Nose/Throat Referral R04.0 - Epistaxis Medications: Refilled Zepbound (tirzepatide (weight loss)) for 4 weeks 2.5 mg (0.5 mL) subcut QWEEK 2 mL 0RF NS E66.01 - Morbid (severe) obesity due to excess calories, G47.33 - Obstructive sleep apnea (adult) (pediatric), Z68.41 - Body mass index [BMI] 40.0-44.9, adult meloxicam 15 mg PO DAILY PRN 90 tabs 1RF back pain lisinopril 10 mg PO DAILY 90 tabs 3RF lisinopril 10 mg PO DAILY 90 tabs 3RF
== END 2024-12-14 15:39 | disposition home or self-care (01) ==
LOC: HO.HMCHD 14:59
PROVIDERS: PCP Internal Medicine; Visit Provider Internal Medicine
DX: I10 Essential (primary) hypertension (principal); E78.00 Pure hypercholesterolemia, unspecified; R73.03 Prediabetes

== ENCOUNTER → 2024-12-14 14:58 | Outpatient (BNVA) | payer BC, SELFPAY | PROVIDERS: PCP Internal Medicine; Visit Provider Internal Medicine | DX: I10 Essential (primary) hypertension (principal); E78.00 Pure hypercholesterolemia, unspecified; R73.03 Prediabetes; F11.20 Opioid dependence, uncomplicated; G47.33 Obstructive sleep apnea (adult) (pediatric); E66.01 Morbid (severe) obesity due to excess calories; Z68.42 Body mass index [BMI] 45.0-49.9, adult; Z79.899 Other long term (current) drug therapy; Z13.30 Encounter for screening examination for mental health and behavioral disorders, unspecified; Z13.31 Encounter for screening for depression | CPT/HCPCS: 96127 ==

== ENCOUNTER 2024-12-19 11:26 | Outpatient (AMB) | payer BC, SELFPAY ==
--- OUTSIDE RECORDS SUMMARY | 2024-02-17 07:40 | XMS_ITS ---
Author Organization [facility] Address [address] [place] [phone] Care Team Providers Care Pecan Grower Name Role Phone Fady Brambila MD Primary Care Provider Santos Saravia Jr REASON FOR VISIT screening Encounters Encounter Location Date Provider Diagnosis [facility] Outpatient [address] [place] [phone] 02/17/2024 Santos Wesley Jr Plan Of Treatment No Information Progress Notes * SAL MEYERDOB:1975 ( 49 yo M)Acc No.[id number]:02/17/2024 COLON WITH MAC Patient: SAL PARK Provider: Francisco Javier Wesley MD :1975 A ge:48 Y S ex:Male Date:02/17/2024 Address:[address] [place], [place] [phone] Pcp:Fady Brambila MD Subjective: * Chief Complaints: [...] 0 02/17/2024 Generated for Sree salazar/Angelic/eTransmitting on: 12/19/2024 12:15 PM EDT
[2024-12-19 11:38] VITALS: BP 162/94; PULSE 85; RESP 18; O2SAT 100; BMI 47.1
--- NOTE | 2024-12-19 11:38 | MHC.OFFVIS ---
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 He reports greatly improved mobility, improved activity of daily living, he reports 90% pain improvement. It has been 3 weeks since the injection. I recommended him to start doing more exercises especially low-impact aerobic exercises such as swimming. He needs to lose weight to be eligible for total hip replacement. I do not mind to repeat this injection if pain relief lasts more than 3 months. We also briefly discussed possibility of treating his hip pain with DRG stimulation versus spinal cord stimulation, I explained to him that this is the last resort if he can not go for total hip replacement. Prior:In the past he received hip steroid injections he reported only few weeks of pain control. It was done under x-ray guidance many years ago. I offered him to perform the repeated injection in his right hip. He agreed to go for the injection. We were planning in the past to perform a trial of Zango spinal cord stimulator with position of the electrode in lumbar gutter L2-L3 L3-L4 epidural interspace. Patient is interested in this procedure. He needs to go to psychological evaluation. Brochure of [employer] point was given to the patient. He is working individual. Prior: very pleasant 47 years old gentleman who is suffering from osteoarthritis and opioid use disorder. He came to my office with complains on pain in the groin as well as pain in the hip and pain in the trochanteric area. He reports that he is suffering from this condition for 15 years he reports his pain 6/10. He reports that he cannot sleep normally but he can do activities of daily living take care of himself and function normally. 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 He is self mobile. He reports that his pain is most severe in the morning. In terms of tissue damage he reports his pain is pulsing pounding shooting pinching cramping crushing tugging pulling ranging dull hurting heavy sensation. He never had physical therapy for his pain. The hip x-ray was done on 01/25/2022 and dictated as below. He was offered total hip replacement if he would be able to lose some weight. For years to come he had multiple injections into the right hip those were steroid injections ultrasound-guided. Originally the were very instrumental to help his pain. However recently he found that a injections last only 1-2 days for him. Currently he is on Suboxone for UD. [facility] Medical History Morbid obesity Opioid use disorder Hypercholesterolemia Hypertension Family History Mother Liver failure Mother No problems noted. Father No problems noted. Social History Housing: Apartment Alcohol intake: current Alcohol intake frequency: a few times a week Patient Tobacco Use Status: Former Tobacco user service: No Current occupational status: employed Current occupation: [employer]/ [employer] hand Cognitive needs: No Hearing needs: No Vision needs: No Review of Systems Const All systems reviewed & are unremarkable except as noted in HPI and below ENT Reports Normal hearing present Neuro Reports Normal hearing present, Denies Abnormal speech present, Denies confusion and Denies Sensory deficit (Neuro) Psych Denies confusion Physical Exam Vital Signs: Last Vital Signs Pulse 85 12/19/24 11:38 Resp 18 12/19/24 11:38 BP 162/94 H 12/19/24 11:38 Pulse Ox 100 12/19/24 11:38 Oxygen Delivery Method Room Air 12/19/24 11:38 BMI result Body Mass Index 47.1 Const General: No confusion Nutritional Appearance: obese morbidly obese Orientation/consciousness: No confusion Eyes General: appearance normal, both eyes and all related structures Pupils: Equal, round and reactive pupils present EOM: EOMs intact bilaterally Neck Neck: Yes full ROM Chest Chest palpation & inspection: normal inspection of the chest Resp Effort & Inspection: normal respiratory effort, able to speak in complete sentences, normal respiratory pattern, no audible wheezes and no cough Cardio Jugular venous distension: no JVD GI Inspection: Yes normal to inspection Neuro General: No confusion Cranial nerves: Yes Equal, round and reactive pupils present and Yes Normal hearing present Speech: No Abnormal speech present Gait exam (Neuro): Normal gait present Motor exam (neuro): 5/5 motor strength present throughout Sensory Exam: No Sensory deficit (Neuro) Extrem Other: Lateral and medial rotation of the hip causes discomfort in the groin as well as discomfort in the trochanteric area. Range of motion of the right hip is limited compared to the left. General: No pedal edema Psych Speech and movement: Normal speech and movement present Affect: normal affect Attitude: cooperative Thought process: Normal thought process present Thought content: Normal thought content present Insight: Good insight present (Psych) Judgement: Good judgement present (Psych) Assessment & Plan Assessment & Plan (1) Right hip pain: Code(s): M25.551 - Pain in right hip Category: Medical Plan Good results of the hip steroid injection. Reports improved mobility and activities of daily living. Reports 90% pain improvement. Wants to lose weight to be eligible for total hip replacement. In the past we discussed possibility of continuing to injections to provide him better ability to lose weight. Also we discussed possibility of treating his pain with spinal cord stimulation versus DRG stimulation in case he will be found ineligible for total hip replacement. Next appointment as needed. I will schedule him for the procedure repeat hip steroid injection if pain will come back later than 3 months since the last injection. Last injection was 11/27/2024. Coding Level of Care Code Est Pt Level 3 (54742) Diagnoses Right hip pain M25.551
--- OUTSIDE RECORDS SUMMARY | 2024-12-19 12:15 | XMS_ITS | Patient Health Record ---
Author Organization [facility] [place] Address [address] [facility] [place] [address] Care Team Providers Care Barrel Driller Name Role Phone Fady Brambila MD Primary Care Provider Unavaila Yonis Aleman Unavailable [phone] Reason For Referral No Information Medications Medication SIG (Take, Route, Frequency, Duration) Notes Start Date End Date Status Atorvastatin Calcium 10 MG TAKE 1 TABLET BY MOUTH DAILY Oral; Duration: 60 Active Lisinopril 5 MG TAKE 1 TABLET EVERY DAY Oral; Duration: 30 Active Work Note . . . Medical from [place] 01/06-01/09/17 01/06/2017 Active Social History Tobacco Use: Social History Observation Description Date Details (start date - stop date) Never Smoker NA - NA Tobacco Use/Smoking Question Answer Notes Are you a: nonsmoker Additional Findings: Tobacco Non-User Current no n-smoker Alcohol Screen Question Answer Notes Did you have a drink contain ing alcohol in the past year? Yes How often did you have a dri nk containing alcohol in the past year? 2 to 3 times a week (3 points) Points 3 Interpretation Negative Tobacco use other than smoking: Question Answer Notes Are you an other tobacco user? No Problems Problem Type SNOMED Code ICD Code Onset Dates Problem Status W/U Status Risk Notes Problem Ingrowing nail (516157622) Ingrowing nail (L60.0) Active confirmed Plan Of Treatment Pending Test Test Name Order Date [id number]-Vqbkhumz Plate 10/04/2016 92387- Debride <25 sq cm 11/22/2016 25901- Debride <25 sq cm 01/31/2017 Insurance Providers Payer Name Payer Address Payer Phone Subscriber Number Group Number Insured Name Patient Relationship to Insured Coverage Start Date Coverage End Date [facility] [address] [place] [address] [id number] Ludwig Hong Self - patient is the insured Medical (General) History Medical History History ICD Code Back,Hip,and Knee pain Chicken pox Hypertension Cholesterol
== END 2024-12-19 11:57 | disposition home or self-care (01) ==
LOC: HO.PMC 11:27
PROVIDERS: PCP Internal Medicine; Visit Provider Anesthesiology
DX: M25.551 Pain in right hip (principal)
CPT/HCPCS: 99213

== ENCOUNTER 2025-01-09 16:08 | Outpatient (AMB) | payer BC, SELFPAY ==
--- OUTSIDE RECORDS SUMMARY | 2024-02-17 07:40 | XMS_ITS ---
Author Organization [facility] Address [address] [place] [phone] Care Team Providers Care Textile Converter Name Role Phone Kosta (RETIRED) Fady MCCRAY Primary Care Provide r Betty Wesley Jr, Santos Hernández REASON FOR VISIT screening Encounters Encounter Location Date Provider Diagnosis [facility] Outpatient [address] [place] [phone] 02/17/2024 Santos Wesley Jr Plan Of Treatment No Information Progress Notes * SAL MEYERDOB:1975 ( 49 yo M)Acc No.[id number]:02/17/2024 COLON WITH MAC Patient: SAL PARK Provider: Francisco Javier Wesley MD :1975 A ge:48 Y S ex:Male Date:02/17/2024 Address:[address] [place], [place] [phone] Pcp:Fady Brambila (RETIRED )MD Subjective: * Chief [...] * Provider: Francisco Javier Wesley MD Date: 02/17/2024 Generated for Sree ng/Fageneg/eTransmitting on: 01/09/2025 04:10 PM EDT
--- OUTSIDE RECORDS SUMMARY | 2025-01-09 16:11 | XMS_ITS | Patient Health Record ---
Author Organization [facility] Wali [facility] Address [address] [facility] [place] [address] Care Team Providers Care Tube Sorter Name Role Phone Fady Brambila MD Primary Care Provider Unavaila Yonis Aleman Unavailable [phone] Reason For Referral No Information Medications Medication [...] W/U Status Risk Notes Problem Ingrowing nail (068861420) Ingrowing nail (L60.0) Active confirmed Plan Of Treatment Pending Test Test Name Order Date [id number] Plate 10/04/2016 35138- Debride <25 sq cm 11/22/2016 64901- Debride <25 sq cm 01/31/2017 Insurance Providers Payer Name Payer Address Payer Phone Subscriber Number Group Number Insured Name Patient Relationship to Insured Coverage Start Date Coverage End Date [facility] [address] [place] [address] [phone] [id number] Ludwig Hong Self - patient is the insured Medical (General) History Medical History History ICD Code Back,Hip,and Knee pain Chicken pox Hypertension Cholesterol
--- NOTE | 2025-01-09 16:12 | MHC.OFFVIS ---
Vital Signs 01/09/25 16:13 Height 5 ft 7 in Weight 309 lb BMI 48.4 BP 142/80 H Pulse 100 Pulse Oximetry (%) 97 Intake Visit Reasons: MAT Allergies No Known Allergies Allergy (Verified 01/09/25 16:14) Medication List - Last Reconciled 01/09/25 by Amanda Dubois NP-Eugenio atorvastatin 10 mg PO DAILY blood pressure test kit-large As directed cyclobenzaprine 5 mg PO Q8H PRN gabapentin 300 mg PO TID lidocaine 5% 1 patch topical Q24H 30 days lisinopril 10 mg PO DAILY meloxicam 15 mg PO DAILY PRN naloxone 4 mg/actuation (Narcan) 4 mg intranasal Q2M PRN Zepbound (tirzepatide (weight loss)) 2.5 mg (0.5 mL) subcut QWEEK NS HPI Comments Details: The patient is a 49-year-old male presenting for follow up r/t BRUNO in [facility]. As part of his substance use history, the patient has been abstinent from opioid use for about two years, utilizing buprenorphine-naloxone for maintenance therapy. Additionally, he uses THC edibles occasionally for pain relief and drinks alcohol sporadically, typically in a social context. [facility] Medical History Morbid obesity Opioid use disorder Hypercholesterolemia Hypertension Family History Mother Liver failure Mother No problems noted. Father No problems noted. Social History Housing: Apartment Alcohol intake: current Alcohol intake frequency: a few times a week Patient Tobacco Use Status: Former Tobacco user service: No Current occupational status: employed Current occupation: [employer] at [employer]/ rt hand Cognitive needs: No Hearing needs: No Vision needs: No Review of Systems Const All systems reviewed & are unremarkable except as noted in HPI and below Physical Exam Vital Signs: Last Vital Signs Pulse 100 01/09/25 16:13 BP 142/80 H 01/09/25 16:13 Pulse Ox 97 01/09/25 16:13 BMI result Body Mass Index 48.4 Assessment & Plan Assessment & Plan (1) Opioid use disorder, moderate, in sustained remission: Comment: He is doing well Code(s): F11.21 - Opioid dependence, in remission Category: Medical Plan The plan of care is to continue with the buprenorphine-naloxone 8-2 mg, twice per day. Minimize alcohol and THC consumption. The patient verbalized and agreed with plan of care. Medications: New buprenorphine-naloxone 8-2 mg (Suboxone) Place 1 film on inside of (each) cheek, twice per day. 1 film sublingual BID 60 ea 1RF Patient Instructions: - Take buprenorphine daily as prescribed, adjusting only as necessary. - Be mindful of alcohol intake. - Limit the use of THC edibles. - Follow up in two months or sooner, if needed. Scribe Plan - Not visible on output: Patient was informed and verbally consented to the use of an ambient scribe for clinical note documentation during this visit. Coding Level of Care Code Est Pt Level 3 (49356) Diagnoses Opioid use disorder, moderate, in sustained remission F11.21
[2025-01-09 16:13] VITALS: BP 142/80; PULSE 100; O2SAT 97; BMI 48.4
== END 2025-01-09 16:31 | disposition home or self-care (01) ==
LOC: HO.HCC 16:08
PROVIDERS: PCP Internal Medicine; Visit Provider Clinical Nurse Specialist Psychiatric/Mental Health
DX: F11.21 Opioid dependence, in remission (principal)
CPT/HCPCS: 99213

== ENCOUNTER 2025-03-12 16:05 | Outpatient (AMB) | payer BC, SELFPAY ==
--- OUTSIDE RECORDS SUMMARY | 2023-09-19 07:20 | XMS_ITS ---
Author Organization [facility] Address [address] [place] [phone] Care Team Providers Care Boring Machine Feeder Name Role Phone Kosta (RETIRED) , Fady Primary Care Provide r Betty Wesley Jr, Santos Hernández REASON FOR VISIT Patient presents today for a screening colonoscopy Encounters Encounter Location Date Provider Diagnosis [facility] [address] [place] [phone] 09/19/2023 Santos Wesley Jr Plan Of Treatment No Information Progress Notes * SAL MEYERDOB:1975 ( 49 yo M)Acc No.[id number]:09/19/2023 Progress Notes Patient: SAL PARK Provider: Francisco Javier Wesley MD :1975 A ge:48 Y S ex:Male Date:09/19/2023 Address:[address] [place], [place] [phone] Pcp:Fady Brambila (RETIRED )MD Subjective: * Chief Complaints: * 1 . Patient presents today for a screening colonoscopy. * Medical History: Objective: * Vitals: Assessment: Plan: * Treatment: * * The named appointment provid er may or may not be the originator of this progress note, and it is not deemed complete until electronically signed by the appointment provider. Sign off status: Pending * Provider: Francisco Javier Wesley MD Date: 0 09/19/2023 Generated for Printi ng/Faxing/eTransmitting on: 0 03/12/2025 06:36 PM EDT
--- OUTSIDE RECORDS SUMMARY | 2024-02-17 07:40 | XMS_ITS ---
Author Organization [facility] Address [address] [place] [address] Care Team Providers Care Tank Car Loader Name Role Phone Kosta (RETIRED) Fady MCCRAY Primary Care Provide r Betty Wesley Jr, Santos Hernández REASON FOR VISIT screening Encounters Encounter Location Date Provider Diagnosis [facility] Outpatient [address] [place] [id number] 02/17/2024 Santos Wesley Jr Plan Of Treatment No Information Progress Notes * SAL MEYERDOB:1975 ( 49 yo M)Acc No.[id number]:02/17/2024 COLON WITH MAC Patient: SAL PARK Provider: Francisco Javier Wesley MD :1975 A ge:48 Y S ex:Male Date:02/17/2024 Address:[address] [place], [place] [phone] Pcp:Fady Brambila (RETIRED )MD Subjective: * Chief [...] Date: 02/17/2024 Generated for Sree ng/Fageneg/eTransmitting on: 0 03/12/2025 06:35 PM EDT
[2025-03-12 16:14] VITALS: BP 142/80; PULSE 102; O2SAT 94; BMI 47.5
--- NOTE | 2025-03-12 16:14 | MHC.OFFVIS ---
Vital Signs 03/12/25 16:14 Height 5 ft 7 in Weight 303 lb BMI 47.5 BP 142/80 H Pulse 102 H Pulse Oximetry (%) 94 Intake Visit Reasons: MAT Allergies No Known Allergies Allergy (Verified 03/12/25 16:16) HPI Comments Details: A 49 year old male presents for a follow up r/t BRUNO in sustained remission with buprenorphine-naloxone 8-2 mg BID. Denies use of opiates, alcohol, and other substances. Reports continuing to work full-time and is doing well. [facility] Medical History Morbid obesity Opioid use disorder Hypercholesterolemia Hypertension Family History Mother Liver failure Mother No problems noted. Father No problems noted. Social History Housing: Apartment Alcohol intake: current Alcohol intake frequency: a few times a week Patient Tobacco Use Status: Former Tobacco user service: No Current occupational status: employed Current occupation: [employer]/ [employer] Cognitive needs: No Hearing needs: No Vision needs: No Physical Exam Vital Signs: Last Vital Signs Pulse 102 H 03/12/25 16:14 BP 142/80 H 03/12/25 16:14 Pulse Ox 94 03/12/25 16:14 BMI result Body Mass Index 47.5 Assessment & Plan Assessment & Plan (1) Opioid use disorder, moderate, in sustained remission: Comment: He is doing well Code(s): F11.21 - Opioid dependence, in remission Category: Medical Plan The plan of care is to continue with buprenorphine-naloxone 8-2 mg BID and follow-up in 2 months or sooner if needed. Medications: Refilled buprenorphine-naloxone 8-2 mg (Suboxone) Place 1 film on inside of (each) cheek, twice per day. 1 film sublingual BID 60 ea 1RF Patient Instructions: - Continue with buprenorphine-naloxone as prescribed. - Follow up in 2 months or sooner if needed. - Call with questions, concerns, or to report side effects/new onset of symptoms to [facility]. - The patient verbalized understanding and agreed with plan of care. Coding Level of Care Code Est Pt Level 3 (81070) Diagnoses Opioid use disorder, moderate, in sustained remission F11.21
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
--- OUTSIDE RECORDS SUMMARY | 2025-03-12 18:36 | XMS_ITS | Patient Health Record ---
Author Organization [facility] [place] Address [address] [facility] [place] [address] Care Team Providers Care Documentation Consultant Name Role Phone Fady Brambila MD Primary Care Provider Unavaila Yonis lAeman Unavailable [phone] Reason For Referral No Information Medications Medication [...] W/U Status Risk Notes Problem Ingrowing nail (006284772) Ingrowing nail (L60.0) Active confirmed Plan Of Treatment Pending Test Test Name Order Date [id number]-Luzftzhi Plate 10/04/2016 31663- Debride <25 sq cm 11/22/2016 75884- Debride <25 sq cm 01/31/2017 Insurance Providers Payer Name Payer Address Payer Phone Subscriber Number Group Number Insured Name Patient Relationship to Insured Coverage Start Date Coverage End Date [facility] [address] [place] [address] [phone] [id number] Ludwig Hong Self - patient is the insured Medical (General) History Medical History History ICD Code Back,Hip,and Knee pain Chicken pox Hypertension Cholesterol
== END 2025-03-12 16:25 | disposition home or self-care (01) ==
LOC: HO.HCC 16:05
PROVIDERS: PCP Internal Medicine; Visit Provider Clinical Nurse Specialist Psychiatric/Mental Health
DX: F11.21 Opioid dependence, in remission (principal)
CPT/HCPCS: 99213

== ENCOUNTER 2025-03-22 16:06 | Outpatient (AMB) | payer BC, SELFPAY ==
--- OUTSIDE RECORDS SUMMARY | 2024-02-17 07:40 | XMS_ITS ---
Author Organization [facility] Address [address] [place] [address] Care Team Providers Care Legal Internship Name Role Phone Kosta (RETIRED) Fady MCCRAY Primary Care Provide r Betty Wesley Jr, Santos Hernández REASON FOR VISIT screening Encounters Encounter Location Date Provider Diagnosis [facility] Outpatient [address] [place] [phone] 02/17/2024 Santos Wesley Jr Plan Of Treatment No Information Progress Notes * SAL MEYERDOB:1975 ( 49 yo M)Acc No.[id number]:02/17/2024 COLON WITH MAC Patient: SAL PARK Provider: Francisco Javier Wesley MD :1975 A ge:48 Y S ex:Male Date:02/17/2024 Address:[address] [place], [place] [phone] Pcp:Fady Brambila (RETIRED )MD Subjective: * Chief [...] MD Date: 0 02/17/2024 Generated for Sree ng/Fageneg/eTransmitting on: 1 04:08 PM EDT
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
--- OUTSIDE RECORDS SUMMARY | 2025-03-22 16:09 | XMS_ITS | Patient Health Record ---
Author Organization [facility] Address [address] [facility] [place] [address] Care Team Providers Care Cloth Hauler Name Role Phone Fady Brambila MD Primary Care Provider Unavaila Yonis Aleman Unavailable [phone] Reason For Referral No Information Medications Medication [...] W/U Status Risk Notes Problem Ingrowing nail (269662201) Ingrowing nail (L60.0) Active confirmed Plan Of Treatment Pending Test Test Name Order Date [id number] Plate 10/04/2016 55120- Debride <25 sq cm 11/22/2016 88046- Debride <25 sq cm 01/31/2017 Insurance Providers Payer Name Payer Address Payer Phone Subscriber Number Group Number Insured Name Patient Relationship to Insured Coverage Start Date Coverage End Date [facility] [address] [place] [address] [id number] [address] Hong Self - patient is the insured Medical (General) History Medical History History ICD Code Back,Hip,and Knee pain Chicken pox Hypertension Cholesterol
[2025-03-22 16:25] VITALS: BP 142/80; PULSE 88; RESP 16; TEMP 36.6; O2SAT 98; BMI 46.2
== END 2025-03-22 16:47 | disposition home or self-care (01) ==
LOC: HO.HMCHD 16:07
PROVIDERS: PCP Internal Medicine; Visit Provider Physician Assistant
DX: I10 Essential (primary) hypertension (principal); R73.03 Prediabetes; F11.21 Opioid dependence, in remission

== ENCOUNTER 2025-05-14 14:42 | Outpatient (AMB) | payer BC, SELFPAY ==
[2025-05-14 15:02] VITALS: BP 160/80; O2SAT 97
--- NOTE | 2025-05-14 15:02 | MHC.OFFVIS ---
Vital Signs 05/14/25 15:02 BP 160/80 H Pulse Oximetry (%) 97 Intake Visit Reasons: MAT Allergies No Known Allergies Allergy (Verified 05/14/25 15:03) HPI Comments Details: A 41-year-old male presents for a follow-up visit r/t BRUNO in sustained remission with buprenorphine-naloxone 8-2 mg BID. Denies use of opiates, alcohol, and other substances. Engages in conversation re: will be starting on GPL-1 to asssit with weight loss and undergo a hip replacement surgery. [facility] Medical History Morbid obesity Opioid use disorder Hypercholesterolemia Hypertension Family History Mother Liver failure Mother No problems noted. Father No problems noted. Social History Housing: Apartment Alcohol intake: current Alcohol intake frequency: a few times a week Patient Tobacco Use Status: Former Tobacco user service: No Current occupational status: employed Current occupation: [email or web address] Cognitive needs: No Hearing needs: No Vision needs: No Review of Systems Const All systems reviewed & are unremarkable except as noted in HPI and below Physical Exam Vital Signs: Last Vital Signs BP 160/80 H 05/14/25 15:02 Pulse Ox 97 05/14/25 15:02 Const General: cooperative Assessment & Plan Assessment & Plan (1) Opioid use disorder, moderate, in sustained remission: Comment: He is doing well Code(s): F11.21 - Opioid dependence, in remission Category: Medical Plan The plan of care is to continue with buprenorphine-naloxone 8-2 mg BID and follow-up in 2 months or sooner if needed. Medications: Refilled buprenorphine-naloxone 8-2 mg (Suboxone) Place 1 film on inside of (each) cheek, twice per day. 1 film sublingual BID 60 ea 1RF Patient Instructions: - Continue with buprenorphine-naloxone as prescribed. - Follow-up in 2 months or sooner if needed. - Call with questions, concerns, or to report side effects/new onset of symptoms to [facility]. - The patient verbalized understanding and agreed with plan of care. Coding Level of Care Code Est Pt Level 3 (82020) Diagnoses Opioid use disorder, moderate, in sustained remission F11.21
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
--- OUTSIDE RECORDS SUMMARY | 2025-05-14 18:29 | XMS_ITS | Patient Health Record ---
Author Organization [facility] Address [address] [facility] [place] [address] Care Team Providers Care Manager Aerospace Name Role Phone Fady Brambila MD Primary Care Provider Unavaila Yonis Aleman Unavailable [phone] Reason For Referral No Information Medications Medication [...] W/U Status Risk Notes Problem Ingrowing nail (688263105) Ingrowing nail (L60.0) Active confirmed Plan Of Treatment Pending Test Test Name Order Date [id number] Plate 10/04/2016 09330- Debride <25 sq cm 11/22/2016 55945- Debride <25 sq cm 01/31/2017 Insurance Providers Payer Name Payer Address Payer Phone Subscriber Number Group Number Insured Name Patient Relationship to Insured Coverage Start Date Coverage End Date [facility] [address] [place] [address] [phone] [id number] Ludwig Hong Self - patient is the insured Medical (General) History Medical History History ICD Code Back,Hip,and Knee pain Chicken pox Hypertension Cholesterol
== END 2025-05-14 15:18 | disposition home or self-care (01) ==
LOC: HO.HCC 14:43
PROVIDERS: PCP Internal Medicine; Visit Provider Clinical Nurse Specialist Psychiatric/Mental Health
DX: F11.21 Opioid dependence, in remission (principal)
CPT/HCPCS: 99213